=== PATIENT | male | born 1950 | race Caucasian/White ===

== ENCOUNTER 2018-04-03 20:23 | Inpatient (IN) | payer OTHER ==
[2018-04-03 20:59] LABS: ADD MAN DIFF? NO
[2018-04-03 21:02] LABS: BASO # 0.1 x10^3/uL (0.0-0.2); BASO % 1 % (0-3); EOS # 0.1 x10^3/uL (0.0-0.7); EOS % 1 % (0-3); HEMATOCRIT 35.2 % (39.0-53.0); HEMOGLOBIN 11.9 g/dL (13.0-17.5); LYMPH # 1.7 x10^3/uL (1.0-4.8); LYMPH % 20 % (24-48); MEAN CORPUSCULAR HEMOGLOBIN 29 pg (25-35); MEAN CORPUSCULAR HGB CONC 34 g/dL (31-37); MEAN CORPUSCULAR VOLUME 85 fL (79-100); MONO # 0.7 x10^3/uL (0.0-1.1); MONO % 9 % (0-9); NEUT % 70 % (31-73); PLATELET COUNT 149 x10^3/uL (140-400); RED BLOOD COUNT 4.14 x10^6/uL (4.30-5.70); RED CELL DISTRIBUTION WIDTH 14.3 % (11.5-14.5); WHITE BLOOD COUNT 8.6 x10^3/uL (4.0-11.0)
[2018-04-03] MEDS: IPRATRPIUM/ALBUTEROL 0.5/2.5MG 3 ML NEBU. NEB (21:10)
[2018-04-03 21:11] LABS: ANION GAP 7 (6-14); BLOOD UREA NITROGEN 26 mg/dL (8-26); CALCIUM 9.2 mg/dL (8.5-10.1); CARBON DIOXIDE 30 mmol/L (21-32); CHLORIDE 104 mmol/L (98-107); CREATININE 1.2 mg/dL (0.7-1.3); GFR 60.4; GLUCOSE 104 mg/dL (70-99); POTASSIUM 3.8 mmol/L (3.5-5.1); SODIUM 141 mmol/L (136-145)
[2018-04-03 21:17] LABS: ALBUMIN 3.5 g/dL (3.4-5.0); ALK PHOS 93 U/L (46-116); ALT (SGPT) 11 U/L (16-63); AST (SGOT) 15 U/L (15-37); DIRECT BILIRUBIN 0.1 mg/dL (0.0-0.2); TOTAL BILIRUBIN 0.4 mg/dL (0.2-1.0); TOTAL PROTEIN 7.6 g/dL (6.4-8.2)
[2018-04-03] MEDS: methylPREDNISolone SOD SUCC PF 125 MG/2 ML VIAL. IV (21:18)
[2018-04-03 21:19] LABS: LACTIC ACID 0.6 mmol/L (0.4-2.0)
[2018-04-03 21:25] LABS: TROPONINI < 0.017 ng/mL (0.000-0.055)
[2018-04-03 22:55] LABS: PROCALCITONIN < 0.10 ng/mL (0.00-0.10)
[2018-04-03 23:11] LABS: NT-PRO BNP 114 pg/mL (0-124)
[2018-04-03] MEDS: ALBUTEROL SULFATE 2.5 MG/3 ML NEBU. CONT NEB (23:53)
[2018-04-04] MEDS ORDERED: ONDANSETRON PF 4 MG/2 ML VIAL. IV
[2018-04-04] MEDS ORDERED: MORPHINE SULFATE 4 MG/ML DISP.SYRIN. IV
[2018-04-04] MEDS ORDERED: IPRATRPIUM/ALBUTEROL 0.5/2.5MG 3 ML NEBU. NEB (00:30)
[2018-04-04] MEDS: IPRATRPIUM/ALBUTEROL 0.5/2.5MG 3 ML NEBU. NEB ×4 (07:34→20:58)
[2018-04-04 08:37] LABS: POC GLUCOSE 143 mg/dL (70-99)
[2018-04-04] MEDS: FUROSEMIDE 40 MG/4 ML VIAL. IVP (08:48)
[2018-04-04] MEDS: LACTOBACILLUS RHAMNOSUS GG 1 CAPSULE. PO ×2 (08:48→20:32)
[2018-04-04] MEDS ORDERED: ACETAMINOPHEN 325 MG TABLET. PO ×2 (09:00)
[2018-04-04] MEDS ORDERED: SODIUM CHLORIDE 0.65% NASAL SPRAY 45ML BOTTLE. NS (09:00)
[2018-04-04] MEDS ORDERED: BISACODYL 10 MG SUPP.RECT. PR (09:00)
[2018-04-04] MEDS ORDERED: SODIUM PHOSPHATES 19/7GM 133 ML ENEMA. PR (09:00)
[2018-04-04] MEDS ORDERED: MAGNESIUM HYDROXIDE 2,400 MG/30 ML ORAL.SUSP. PO (09:00)
[2018-04-04] MEDS ORDERED: BISACODYL 5 MG TABLET.DR. PO (09:00)
[2018-04-04] MEDS: FUROSEMIDE 20 MG TABLET PO (09:30)
[2018-04-04] MEDS: ASPIRIN CHEWABLE 81 MG TABLET. PO (10:05)
[2018-04-04] MEDS: POLYETHYLENE GLYCOL 3350 17 GM PACKET. PO (10:05)
[2018-04-04] MEDS: SENNOSIDES/DOCUSATE 8.6/50MG TABLET. PO ×2 (10:05→20:32)
[2018-04-04] MEDS: PANTOPRAZOLE 40 MG TABLET.DR. PO (10:05)
[2018-04-04] MEDS: LOSARTAN POTASSIUM 25 MG TABLET. PO (10:05)
[2018-04-04] MEDS: FLUTICASONE 50MCG/NASAL SPRAY 16GM BOTTLE. NS (10:06)
[2018-04-04 12:08] LABS: POC GLUCOSE 154 mg/dL (70-99)
[2018-04-04] MEDS: methylPREDNISolone SOD SUCC PF 125 MG/2 ML VIAL. IV ×2 (16:12→22:11)
[2018-04-04] MEDS: CARVEDILOL 6.25 MG TABLET. PO (16:24)
[2018-04-04 17:12] LABS: POC GLUCOSE 140 mg/dL (70-99)
[2018-04-04] MEDS: CALCIUM CARBONATE 500 MG TAB.CHEW PO ×2 (18:19→22:13)
[2018-04-04] MEDS: CETIRIZINE HCL 10 MG TABLET. PO (20:32)
[2018-04-04] MEDS: MONTELUKAST SODIUM 10 MG TABLET. PO (20:32)
[2018-04-04 20:40] LABS: POC GLUCOSE 135 mg/dL (70-99)
[2018-04-04] MEDS: BUDESONIDE 0.5 MG/2 ML NEBU. NEB (20:58)
[2018-04-05] MEDS: PANTOPRAZOLE 40 MG TABLET.DR. PO (06:09)
[2018-04-05] MEDS: methylPREDNISolone SOD SUCC PF 125 MG/2 ML VIAL. IV ×3 (06:09→15:56)
[2018-04-05] MEDS: BUDESONIDE 0.5 MG/2 ML NEBU. NEB ×2 (08:00→19:43)
[2018-04-05] MEDS: IPRATRPIUM/ALBUTEROL 0.5/2.5MG 3 ML NEBU. NEB ×4 (08:00→19:43)
[2018-04-05 08:12] LABS: POC GLUCOSE 122 mg/dL (70-99)
[2018-04-05 08:35] LABS: ANION GAP 8 (6-14); BLOOD UREA NITROGEN 26 mg/dL (8-26); CALCIUM 9.9 mg/dL (8.5-10.1); CARBON DIOXIDE 30 mmol/L (21-32); CHLORIDE 101 mmol/L (98-107); CREATININE 1.2 mg/dL (0.7-1.3); GFR 60.4; GLUCOSE 130 mg/dL (70-99); POTASSIUM 4.2 mmol/L (3.5-5.1); SODIUM 139 mmol/L (136-145)
[2018-04-05] MEDS: FLUTICASONE 50MCG/NASAL SPRAY 16GM BOTTLE. NS (09:00)
[2018-04-05 09:13] LABS: BASO % 0 % (0-3); EOS % 0 % (0-3); HEMATOCRIT 38.9 % (39.0-53.0); HEMOGLOBIN 13.3 g/dL (13.0-17.5); LYMPH # 0.8 x10^3/uL (1.0-4.8); LYMPH % 6 % (24-48); MEAN CORPUSCULAR HEMOGLOBIN 29 pg (25-35); MEAN CORPUSCULAR HGB CONC 34 g/dL (31-37); MEAN CORPUSCULAR VOLUME 84 fL (79-100); MONO # 0.3 x10^3/uL (0.0-1.1); MONO % 3 % (0-9); NEUT # 11.1 x10^3uL (1.8-7.7); NEUT % 91 % (31-73); PLATELET COUNT 167 x10^3/uL (140-400); RED BLOOD COUNT 4.62 x10^6/uL (4.30-5.70); WHITE BLOOD COUNT 12.2 x10^3/uL (4.0-11.0)
[2018-04-05 09:14] LABS: ADD MAN DIFF? YES
[2018-04-05] MEDS: LOSARTAN POTASSIUM 25 MG TABLET. PO (10:29)
[2018-04-05] MEDS: CARVEDILOL 6.25 MG TABLET. PO ×2 (10:29→17:03)
[2018-04-05] MEDS: FUROSEMIDE 20 MG TABLET PO (10:29)
[2018-04-05] MEDS: LACTOBACILLUS RHAMNOSUS GG 1 CAPSULE. PO ×2 (10:30→20:56)
[2018-04-05] MEDS: ASPIRIN CHEWABLE 81 MG TABLET. PO (10:30)
[2018-04-05] MEDS: POLYETHYLENE GLYCOL 3350 17 GM PACKET. PO (10:30)
[2018-04-05] MEDS: SENNOSIDES/DOCUSATE 8.6/50MG TABLET. PO ×2 (10:30→20:57)
[2018-04-05] MEDS ORDERED: BISACODYL 5 MG TABLET.DR. PO (11:15)
[2018-04-05 11:35] LABS: POC GLUCOSE 137 mg/dL (70-99)
[2018-04-05 12:08] LABS: % LYMPHS 6 % (24-48); % MONOS 1 % (0-10); % SEGS 93 % (35-66); HYPOCHROMIA SLIGHT; PLT ESTIMATE ADEQUATE (ADEQUATE)
[2018-04-05 12:09] LABS: STOMATOCYTES OCC
[2018-04-05 17:09] LABS: POC GLUCOSE 121 mg/dL (70-99)
[2018-04-05] MEDS: CETIRIZINE HCL 10 MG TABLET. PO (20:57)
[2018-04-05] MEDS: MONTELUKAST SODIUM 10 MG TABLET. PO (20:57)
[2018-04-05] MEDS: CALCIUM CARBONATE 500 MG TAB.CHEW PO (21:01)
[2018-04-05 21:13] LABS: POC GLUCOSE 158 mg/dL (70-99)
[2018-04-06] MEDS: PANTOPRAZOLE 40 MG TABLET.DR. PO (06:26)
[2018-04-06] MEDS: BUDESONIDE 0.5 MG/2 ML NEBU. NEB (07:26)
[2018-04-06] MEDS: IPRATRPIUM/ALBUTEROL 0.5/2.5MG 3 ML NEBU. NEB ×3 (07:26→15:55)
[2018-04-06 07:52] LABS: POC GLUCOSE 116 mg/dL (70-99)
[2018-04-06] MEDS: ASPIRIN CHEWABLE 81 MG TABLET. PO (08:06)
[2018-04-06] MEDS: CARVEDILOL 6.25 MG TABLET. PO ×2 (08:07→16:51)
[2018-04-06] MEDS: FLUTICASONE 50MCG/NASAL SPRAY 16GM BOTTLE. NS (08:08)
[2018-04-06] MEDS: LOSARTAN POTASSIUM 25 MG TABLET. PO (08:09)
[2018-04-06] MEDS: FUROSEMIDE 20 MG TABLET PO (08:09)
[2018-04-06] MEDS: LACTOBACILLUS RHAMNOSUS GG 1 CAPSULE. PO (08:09)
[2018-04-06] MEDS: POLYETHYLENE GLYCOL 3350 17 GM PACKET. PO (08:10)
[2018-04-06] MEDS: SENNOSIDES/DOCUSATE 8.6/50MG TABLET. PO (08:10)
[2018-04-06] MEDS: methylPREDNISolone SOD SUCC PF 125 MG/2 ML VIAL. IV (08:11)
[2018-04-06] MEDS: MAGNESIUM CITRATE 296 ML SOLUTION. PO (09:59)
[2018-04-06 11:49] LABS: POC GLUCOSE 144 mg/dL (70-99)
[2018-04-06 17:03] LABS: POC GLUCOSE 128 mg/dL (70-99)
[2018-04-07] MEDS ORDERED: methylPREDNISolone SOD SUCC PF 125 MG/2 ML VIAL. IV (09:00)
== END 2018-04-06 17:50 | disposition home or self-care (01) | DRG 189 ==
LOC: 5 NORTH 23:55 → ER 20:23
DX: J96.21 Acute and chronic respiratory failure with hypoxia (principal); E11.22 Type 2 diabetes mellitus with diabetic chronic kidney disease; I13.0 Hypertensive heart and chronic kidney disease with heart failure and stage 1 through stage 4 chronic kidney disease, or unspecified chronic kidney disease; I50.9 Heart failure, unspecified; J44.1 Chronic obstructive pulmonary disease with (acute) exacerbation; J96.22 Acute and chronic respiratory failure with hypercapnia; J01.90 Acute sinusitis, unspecified; K21.9 Gastro-esophageal reflux disease without esophagitis; K59.00 Constipation, unspecified; N18.2 Chronic kidney disease, stage 2 (mild); Z82.49 Family history of ischemic heart disease and other diseases of the circulatory system; Z99.81 Dependence on supplemental oxygen
CPT/HCPCS: 36415; 71045; 74018; 80048; 80076; 82962; 83605; 83880; 84145; 84484; 85007; 85025; 87040; 93005; 94640; 94760; 96374; 99285; 99285-25; J1940; J2930; J7613; J7620; J7626

== ENCOUNTER 2018-06-15 19:59 | Inpatient (IN) | payer OTHER ==
[2018-06-15] MEDS ORDERED: IPRATRPIUM/ALBUTEROL 0.5/2.5MG 3 ML NEBU. (20:20)
[2018-06-15] MEDS: IPRATRPIUM/ALBUTEROL 0.5/2.5MG 3 ML NEBU. NEB (20:21)
[2018-06-15] MEDS: ALBUTEROL SULFATE 2.5 MG/3 ML NEBU. CONT NEB (20:27)
[2018-06-15] MEDS: methylPREDNISolone SOD SUCC PF 125 MG/2 ML VIAL. IV (20:30)
[2018-06-15 20:36] LABS: PARTIAL THROMBOPLASTIN TIME 24 SEC (24-38); PROTHROMBIN TIME PATIENT 12.9 SEC (11.7-14.0)
[2018-06-15 20:41] LABS: ANION GAP 6 (6-14); BLOOD UREA NITROGEN 20 mg/dL (8-26); CALCIUM 9.7 mg/dL (8.5-10.1); CARBON DIOXIDE 33 mmol/L (21-32); CHLORIDE 105 mmol/L (98-107); CREATININE 1.1 mg/dL (0.7-1.3); GFR 66.8; GLUCOSE 120 mg/dL (70-99); POTASSIUM 3.7 mmol/L (3.5-5.1); SODIUM 144 mmol/L (136-145)
[2018-06-15 20:53] LABS: NT-PRO BNP 585 pg/mL (0-124)
[2018-06-15 20:56] LABS: ADD MAN DIFF? NO
[2018-06-15 20:56] LABS: LACTIC ACID 2.2 mmol/L (0.4-2.0)
[2018-06-15 20:59] LABS: BASO % 1 % (0-3); EOS % 0 % (0-3); HEMOGLOBIN 11.6 g/dL (13.0-17.5); LYMPH # 1.3 x10^3/uL (1.0-4.8); LYMPH % 16 % (24-48); MEAN CORPUSCULAR HEMOGLOBIN 29 pg (25-35); MEAN CORPUSCULAR HGB CONC 34 g/dL (31-37); MEAN CORPUSCULAR VOLUME 84 fL (79-100); MONO # 0.6 x10^3/uL (0.0-1.1); MONO % 7 % (0-9); NEUT # 6.1 x10^3uL (1.8-7.7); NEUT % 76 % (31-73); PLATELET COUNT 160 x10^3/uL (140-400); RED BLOOD COUNT 4.02 x10^6/uL (4.30-5.70); RED CELL DISTRIBUTION WIDTH 14.2 % (11.5-14.5); WHITE BLOOD COUNT 8.1 x10^3/uL (4.0-11.0)
[2018-06-15 21:01] LABS: TROPONINI < 0.017 ng/mL (0.000-0.055)
[2018-06-15 21:14] LABS: PROCALCITONIN < 0.10 ng/mL (0.00-0.10)
[2018-06-15] MEDS ORDERED: MORPHINE SULFATE 4 MG/ML DISP.SYRIN. IV (22:15)
[2018-06-15] MEDS ORDERED: ACETAMINOPHEN 325 MG TABLET. PO (22:15)
[2018-06-15] MEDS ORDERED: ONDANSETRON PF 4 MG/2 ML VIAL. IV (22:15)
[2018-06-15] MEDS: FUROSEMIDE 40 MG/4 ML VIAL. IVP (22:20)
[2018-06-16 01:36] LABS: LACTIC ACID 0.8 mmol/L (0.4-2.0)
[2018-06-16 03:38] LABS: ANION GAP 6 (6-14); BLOOD UREA NITROGEN 20 mg/dL (8-26); CALCIUM 9.4 mg/dL (8.5-10.1); CARBON DIOXIDE 34 mmol/L (21-32); CHLORIDE 104 mmol/L (98-107); GFR 74.5; GLUCOSE 145 mg/dL (70-99); POTASSIUM 3.4 mmol/L (3.5-5.1); SODIUM 144 mmol/L (136-145)
[2018-06-16 04:30] LABS: BASO % 0 % (0-3); EOS % 0 % (0-3); HEMATOCRIT 35.3 % (39.0-53.0); HEMOGLOBIN 11.8 g/dL (13.0-17.5); LYMPH # 0.5 x10^3/uL (1.0-4.8); LYMPH % 7 % (24-48); MEAN CORPUSCULAR HEMOGLOBIN 29 pg (25-35); MEAN CORPUSCULAR HGB CONC 33 g/dL (31-37); MEAN CORPUSCULAR VOLUME 86 fL (79-100); MONO # 0.1 x10^3/uL (0.0-1.1); MONO % 1 % (0-9); NEUT # 6.7 x10^3uL (1.8-7.7); NEUT % 92 % (31-73); PLATELET COUNT 152 x10^3/uL (140-400); RED BLOOD COUNT 4.12 x10^6/uL (4.30-5.70); RED CELL DISTRIBUTION WIDTH 14.4 % (11.5-14.5); WHITE BLOOD COUNT 7.3 x10^3/uL (4.0-11.0)
[2018-06-16 04:56] LABS: ADD MAN DIFF? YES
[2018-06-16 07:57] LABS: POC GLUCOSE 158 mg/dL (70-99)
[2018-06-16] MEDS: IPRATRPIUM/ALBUTEROL 0.5/2.5MG 3 ML NEBU. NEB ×4 (08:37→19:37)
[2018-06-16] MEDS ORDERED: CALCIUM CARBONATE 500 MG TAB.CHEW PO (09:00)
[2018-06-16] MEDS ORDERED: ALBUTEROL SULFATE 2.5 MG/3 ML NEBU. NEB (09:00)
[2018-06-16] MEDS ORDERED: ONDANSETRON PF 4 MG/2 ML VIAL. IV (09:00)
[2018-06-16] MEDS ORDERED: SODIUM CHLORIDE 0.65% NASAL SPRAY 45ML BOTTLE. NS (09:00)
[2018-06-16] MEDS ORDERED: ACETAMINOPHEN 325 MG TABLET. PO (09:00)
[2018-06-16] MEDS: FLUTICASONE 50MCG/NASAL SPRAY 16GM BOTTLE. NS (09:30)
[2018-06-16] MEDS ORDERED: DEXTROSE 50% 25 GM / 50ML DISP.SYRIN. IV (09:30)
[2018-06-16] MEDS: POLYETHYLENE GLYCOL 3350 17 GM PACKET. PO (09:30)
[2018-06-16] MEDS: ASPIRIN CHEWABLE 81 MG TABLET. PO (09:52)
[2018-06-16] MEDS: PANTOPRAZOLE 40 MG TABLET.DR. PO (09:52)
[2018-06-16] MEDS: SENNOSIDES/DOCUSATE 8.6/50MG TABLET. PO ×2 (09:52→21:02)
[2018-06-16] MEDS: CARVEDILOL 6.25 MG TABLET. PO ×2 (09:53→17:31)
[2018-06-16] MEDS: methylPREDNISolone SOD SUCC PF 125 MG/2 ML VIAL. IV ×2 (09:53→21:02)
[2018-06-16 10:16] LABS: % LYMPHS 6 % (24-48); % SEGS 94 % (35-66); PLT ESTIMATE ADEQUATE (ADEQUATE)
[2018-06-16 10:17] LABS: HYPOCHROMIA SLIGHT; STOMATOCYTES OCC
[2018-06-16 10:28] LABS: LACTIC ACID 1.5 mmol/L (0.4-2.0)
[2018-06-16 10:33] LABS: PROSTATE SPECIFIC ANTIGEN 0.52 ng/mL (0.00-4.00)
[2018-06-16 12:09] LABS: POC GLUCOSE 212 mg/dL (70-99)
[2018-06-16] MEDS: FUROSEMIDE 40 MG/4 ML VIAL. IVP (12:13)
[2018-06-16] MEDS: BUDESONIDE 0.5 MG/2 ML NEBU. NEB ×2 (12:14→19:37)
[2018-06-16] MEDS: INSULIN LISPRO 300 UNITS/3 ML INSULN.PEN. SQ ×2 (12:18→17:00)
[2018-06-16 13:48] LABS: BILIRUBIN,URINE NEGATIVE (NEG); CLARITY,URINE CLEAR; COLOR,URINE YELLOW; GLUCOSE,URINE 100 mg/dL (NEG); NITRITE,URINE NEGATIVE (NEG); PROTEIN,URINE NEGATIVE (NEG-TRACE); UROBILINOGEN,URINE 0.2 mg/dL (0.2 mg/dL)
[2018-06-16 14:14] LABS: BACTERIA,URINE 0 /HPF (0-FEW); SQUAMOUS EPITHELIAL CELL,UR OCC /LPF
[2018-06-16] MEDS ORDERED: INSULIN LISPRO 300 UNITS/3 ML INSULN.PEN. SQ (16:30)
[2018-06-16 17:05] LABS: POC GLUCOSE 136 mg/dL (70-99)
[2018-06-16] MEDS: LACTOBACILLUS RHAMNOSUS GG 1 CAPSULE. PO (21:02)
[2018-06-16] MEDS: TAMSULOSIN 0.4 MG CAP.ER.24H. PO (21:02)
[2018-06-17 05:49] LABS: ADD MAN DIFF? NO
[2018-06-17 05:55] LABS: BASO % 0 % (0-3); EOS % 0 % (0-3); HEMATOCRIT 35.2 % (39.0-53.0); HEMOGLOBIN 11.9 g/dL (13.0-17.5); LYMPH # 0.7 x10^3/uL (1.0-4.8); LYMPH % 8 % (24-48); MEAN CORPUSCULAR HEMOGLOBIN 28 pg (25-35); MEAN CORPUSCULAR HGB CONC 34 g/dL (31-37); MEAN CORPUSCULAR VOLUME 84 fL (79-100); MONO # 0.3 x10^3/uL (0.0-1.1); MONO % 4 % (0-9); NEUT % 88 % (31-73); PLATELET COUNT 144 x10^3/uL (140-400); RED CELL DISTRIBUTION WIDTH 14.2 % (11.5-14.5)
[2018-06-17 06:29] LABS: ALBUMIN 3.2 g/dL (3.4-5.0); ALBUMIN/GLOBULIN RATIO 0.7 (1.0-1.7); ALK PHOS 76 U/L (46-116); ALT (SGPT) 17 U/L (16-63); ANION GAP 4 (6-14); AST (SGOT) 15 U/L (15-37); BLOOD UREA NITROGEN 18 mg/dL (8-26); BUN/CREATININE RATIO 18 (6-20); CALCIUM 9.5 mg/dL (8.5-10.1); CARBON DIOXIDE 34 mmol/L (21-32); CHLORIDE 102 mmol/L (98-107); GFR 74.5; GLUCOSE 132 mg/dL (70-99); POTASSIUM 3.8 mmol/L (3.5-5.1); SODIUM 140 mmol/L (136-145); TOTAL BILIRUBIN 0.3 mg/dL (0.2-1.0); TOTAL PROTEIN 7.5 g/dL (6.4-8.2)
[2018-06-17] MEDS: IPRATRPIUM/ALBUTEROL 0.5/2.5MG 3 ML NEBU. NEB ×4 (07:31→21:54)
[2018-06-17] MEDS: BUDESONIDE 0.5 MG/2 ML NEBU. NEB ×2 (07:31→21:54)
[2018-06-17 07:47] LABS: POC GLUCOSE 138 mg/dL (70-99)
[2018-06-17] MEDS: INSULIN LISPRO 300 UNITS/3 ML INSULN.PEN. SQ ×3 (08:00→17:00)
[2018-06-17] MEDS: ASPIRIN CHEWABLE 81 MG TABLET. PO (09:00)
[2018-06-17] MEDS: POLYETHYLENE GLYCOL 3350 17 GM PACKET. PO (09:00)
[2018-06-17] MEDS: PANTOPRAZOLE 40 MG TABLET.DR. PO (09:00)
[2018-06-17] MEDS: POTASSIUM CHLORIDE 10 MEQ TABLET.ER. PO ×3 (09:01→17:38)
[2018-06-17] MEDS: SENNOSIDES/DOCUSATE 8.6/50MG TABLET. PO ×2 (09:01→20:55)
[2018-06-17] MEDS: FLUTICASONE 50MCG/NASAL SPRAY 16GM BOTTLE. NS (09:02)
[2018-06-17] MEDS: CARVEDILOL 6.25 MG TABLET. PO ×2 (09:02→17:38)
[2018-06-17] MEDS: methylPREDNISolone SOD SUCC PF 125 MG/2 ML VIAL. IV (09:03)
[2018-06-17] MEDS ORDERED: FUROSEMIDE 40 MG/4 ML VIAL. IVP (10:15)
[2018-06-17] MEDS: FUROSEMIDE 40 MG/4 ML VIAL. IVP (10:46)
[2018-06-17 11:51] LABS: POC GLUCOSE 170 mg/dL (70-99)
[2018-06-17 17:00] LABS: POC GLUCOSE 137 mg/dL (70-99)
[2018-06-17 20:33] LABS: POC GLUCOSE 132 mg/dL (70-99)
[2018-06-17] MEDS: TAMSULOSIN 0.4 MG CAP.ER.24H. PO (20:55)
[2018-06-18 04:37] LABS: ADD MAN DIFF? NO
[2018-06-18 04:48] LABS: BASO % 0 % (0-3); EOS % 0 % (0-3); HEMATOCRIT 36.3 % (39.0-53.0); HEMOGLOBIN 12.2 g/dL (13.0-17.5); LYMPH # 1.4 x10^3/uL (1.0-4.8); LYMPH % 13 % (24-48); MEAN CORPUSCULAR HEMOGLOBIN 28 pg (25-35); MEAN CORPUSCULAR HGB CONC 34 g/dL (31-37); MEAN CORPUSCULAR VOLUME 84 fL (79-100); MONO # 0.9 x10^3/uL (0.0-1.1); MONO % 8 % (0-9); NEUT # 8.3 x10^3uL (1.8-7.7); NEUT % 79 % (31-73); PLATELET COUNT 151 x10^3/uL (140-400); RED BLOOD COUNT 4.31 x10^6/uL (4.30-5.70); RED CELL DISTRIBUTION WIDTH 14.3 % (11.5-14.5); WHITE BLOOD COUNT 10.5 x10^3/uL (4.0-11.0)
[2018-06-18 05:30] LABS: ALBUMIN/GLOBULIN RATIO 0.8 (1.0-1.7); ALK PHOS 83 U/L (46-116); ALT (SGPT) 18 U/L (16-63); ANION GAP 5 (6-14); AST (SGOT) 14 U/L (15-37); BLOOD UREA NITROGEN 27 mg/dL (8-26); BUN/CREATININE RATIO 27 (6-20); CARBON DIOXIDE 34 mmol/L (21-32); CHLORIDE 101 mmol/L (98-107); GFR 74.5; GLUCOSE 119 mg/dL (70-99); MAGNESIUM 1.9 mg/dL (1.8-2.4); POTASSIUM 3.7 mmol/L (3.5-5.1); SODIUM 140 mmol/L (136-145); TOTAL BILIRUBIN 0.2 mg/dL (0.2-1.0)
[2018-06-18] MEDS: BUDESONIDE 0.5 MG/2 ML NEBU. NEB ×2 (07:20→19:17)
[2018-06-18] MEDS: IPRATRPIUM/ALBUTEROL 0.5/2.5MG 3 ML NEBU. NEB ×4 (07:20→19:16)
[2018-06-18] MEDS: INSULIN LISPRO 300 UNITS/3 ML INSULN.PEN. SQ ×3 (08:00→17:00)
[2018-06-18 08:16] LABS: POC GLUCOSE 109 mg/dL (70-99)
[2018-06-18] MEDS: POTASSIUM CHLORIDE 10 MEQ TABLET.ER. PO ×3 (08:52→17:36)
[2018-06-18] MEDS: CARVEDILOL 6.25 MG TABLET. PO ×2 (08:52→17:37)
[2018-06-18] MEDS: ASPIRIN CHEWABLE 81 MG TABLET. PO (08:52)
[2018-06-18] MEDS: SENNOSIDES/DOCUSATE 8.6/50MG TABLET. PO ×2 (08:52→20:27)
[2018-06-18] MEDS: PANTOPRAZOLE 40 MG TABLET.DR. PO (08:52)
[2018-06-18] MEDS: POLYETHYLENE GLYCOL 3350 17 GM PACKET. PO (08:53)
[2018-06-18] MEDS: FUROSEMIDE 40 MG TABLET. PO (08:54)
[2018-06-18] MEDS: FLUTICASONE 50MCG/NASAL SPRAY 16GM BOTTLE. NS (08:56)
[2018-06-18] MEDS: methylPREDNISolone SOD SUCC PF 125 MG/2 ML VIAL. IV (08:57)
[2018-06-18 12:09] LABS: POC GLUCOSE 119 mg/dL (70-99)
[2018-06-18 17:08] LABS: POC GLUCOSE 119 mg/dL (70-99)
[2018-06-18] MEDS: TAMSULOSIN 0.4 MG CAP.ER.24H. PO (20:27)
[2018-06-18 20:33] LABS: POC GLUCOSE 138 mg/dL (70-99)
[2018-06-19 05:33] LABS: ALBUMIN 2.9 g/dL (3.4-5.0); ALBUMIN/GLOBULIN RATIO 0.7 (1.0-1.7); ALK PHOS 72 U/L (46-116); ALT (SGPT) 18 U/L (16-63); AST (SGOT) 17 U/L (15-37); BLOOD UREA NITROGEN 32 mg/dL (8-26); BUN/CREATININE RATIO 32 (6-20); CALCIUM 9.7 mg/dL (8.5-10.1); CHLORIDE 101 mmol/L (98-107); GFR 74.5; GLUCOSE 108 mg/dL (70-99); POTASSIUM 4.2 mmol/L (3.5-5.1); SODIUM 138 mmol/L (136-145); TOTAL BILIRUBIN 0.3 mg/dL (0.2-1.0); TOTAL PROTEIN 7.2 g/dL (6.4-8.2)
[2018-06-19 05:34] LABS: ANION GAP 5 (6-14); CARBON DIOXIDE 32 mmol/L (21-32)
[2018-06-19 07:31] LABS: POC GLUCOSE 115 mg/dL (70-99)
[2018-06-19] MEDS: BUDESONIDE 0.5 MG/2 ML NEBU. NEB (07:48)
[2018-06-19] MEDS: IPRATRPIUM/ALBUTEROL 0.5/2.5MG 3 ML NEBU. NEB ×2 (07:48→11:40)
[2018-06-19] MEDS: INSULIN LISPRO 300 UNITS/3 ML INSULN.PEN. SQ (08:00)
[2018-06-19] MEDS: methylPREDNISolone SOD SUCC PF 125 MG/2 ML VIAL. IV (08:58)
[2018-06-19] MEDS: SENNOSIDES/DOCUSATE 8.6/50MG TABLET. PO (08:59)
[2018-06-19] MEDS: FUROSEMIDE 40 MG TABLET. PO (08:59)
[2018-06-19] MEDS: ASPIRIN CHEWABLE 81 MG TABLET. PO (08:59)
[2018-06-19] MEDS: POTASSIUM CHLORIDE 10 MEQ TABLET.ER. PO (08:59)
[2018-06-19] MEDS: PANTOPRAZOLE 40 MG TABLET.DR. PO (08:59)
[2018-06-19] MEDS: CARVEDILOL 6.25 MG TABLET. PO (08:59)
[2018-06-19] MEDS: POLYETHYLENE GLYCOL 3350 17 GM PACKET. PO (09:00)
[2018-06-19] MEDS: FLUTICASONE 50MCG/NASAL SPRAY 16GM BOTTLE. NS (09:00)
[2018-06-19 09:46] LABS: ADD MAN DIFF? NO
[2018-06-19 10:16] LABS: BASO % 0 % (0-3); EOS % 0 % (0-3); HEMATOCRIT 41.2 % (39.0-53.0); HEMOGLOBIN 13.8 g/dL (13.0-17.5); LYMPH # 2.9 x10^3/uL (1.0-4.8); LYMPH % 30 % (24-48); MEAN CORPUSCULAR HEMOGLOBIN 29 pg (25-35); MEAN CORPUSCULAR HGB CONC 33 g/dL (31-37); MEAN CORPUSCULAR VOLUME 86 fL (79-100); MONO % 11 % (0-9); NEUT # 5.8 x10^3uL (1.8-7.7); NEUT % 60 % (31-73); PLATELET COUNT 145 x10^3/uL (140-400); RED BLOOD COUNT 4.81 x10^6/uL (4.30-5.70); RED CELL DISTRIBUTION WIDTH 14.2 % (11.5-14.5); WHITE BLOOD COUNT 9.7 x10^3/uL (4.0-11.0)
== END 2018-06-19 11:55 | disposition home or self-care (01) | DRG 291 ==
LOC: ER 19:59 → 2 NORTH 22:00
DX: I13.0 Hypertensive heart and chronic kidney disease with heart failure and stage 1 through stage 4 chronic kidney disease, or unspecified chronic kidney disease (principal); I50.33 Acute on chronic diastolic (congestive) heart failure; J96.21 Acute and chronic respiratory failure with hypoxia; J96.22 Acute and chronic respiratory failure with hypercapnia; J44.1 Chronic obstructive pulmonary disease with (acute) exacerbation; E87.2 Acidosis; E44.0 Moderate protein-calorie malnutrition; N18.2 Chronic kidney disease, stage 2 (mild); E11.22 Type 2 diabetes mellitus with diabetic chronic kidney disease; K21.9 Gastro-esophageal reflux disease without esophagitis; K59.00 Constipation, unspecified; E78.5 Hyperlipidemia, unspecified; M19.90 Unspecified osteoarthritis, unspecified site; I27.20 Pulmonary hypertension, unspecified; F17.200 Nicotine dependence, unspecified, uncomplicated; D64.9 Anemia, unspecified; R33.8 Other retention of urine; N40.1 Benign prostatic hyperplasia with lower urinary tract symptoms; E87.6 Hypokalemia; Z99.81 Dependence on supplemental oxygen; Z82.49 Family history of ischemic heart disease and other diseases of the circulatory system; Z68.20 Body mass index [BMI] 20.0-20.9, adult; Z91.14 Patient's other noncompliance with medication regimen; Z71.6 Tobacco abuse counseling
CPT/HCPCS: 36415; 71045; 80048; 80053; 81001; 82962; 83605; 83735; 83880; 84145; 84484; 85007; 85025; 85610; 85730; 93005; 93308; 93320; 93325; 94640; 94644; 94760; 96374; 96375; 97110-GP; 97162-GP; 97165-GO; 99285; 99285-25; G0103; J1815; J1940; J2930; J7613; J7620; J7626

== ENCOUNTER 2019-04-04 15:24 | Inpatient (IN) | payer OTHER ==
[~2019-04-04] VITALS: Ht 182.9 cm; Wt 82.6 kg
[~2019-04-04 15:24] MED LIST: ALBU2.5V8 INH; ASPI81TA59 PO; BUDE10.2 IH; CALC200T23 PO; CARV6.2511 PO; DOXY100T PO; FLUT16SP NS; FURO20TA3 PO; FURO40TA4 PO; IPRA3AMP29 NEB; LEVO500T59 PO; LOSA25TA PO; METF500T16 PO; METH4TAB6 PO; MONT10TA9 PO; OMEP20TA8 PO; POLY255P11 PO; POTA10TA12 PO; POTA20TA4 PO; PRED-220 PO; Pantoprazole PO; SENN-22 PO; SODI44SP NS; SPIR25TA5 PO; TAMS0.4C97 PO; TIOT18CA IH
[2019-04-04] MEDS ORDERED: IPRATRPIUM/ALBUTEROL 0.5/2.5MG 3 ML NEBU. ONE (15:37)
--- NOTE | 2019-04-04 15:54 | PHYS DOC ---
Past Medical History Past Medical History: CHF, COPD, Diabetes-Type II, Hypertension Additional Past Medical Histor: "LIVER PROBLEMS" (BRENNAN WEATHERS APRN) Past Surgical History: No Surgical History (BRENNAN WEATHERS APRN) Smoking: Cigarettes, Less than 1pk/day Alcohol Use: None Drug Use: None (BRENNAN WEATHERS APRN) Adult General Chief Complaint Chief Complaint: SHORTNESS OF BREATH HPI HPI Patient is a 68 year old male who presents with shortness of breath. He has been getting increasingly short of breath over the last several days. Associated symptoms include cough and feeling hot and cold. Has history of COPD and is on 4 L of oxygen at home at baseline. Took albuterol breathing treatment this morning at home says it helped a little bit. States of the lasts 2 days he's been having bilateral leg swelling or so than usual. Presented to ER via EMS and was satting approximately 79-82% on room air. Was placed on 3 L the nursing staff which increased oxygen 85%. (BRENNAN WEATHERS APRN) Review of Systems Review of Systems Constitutional: Reports fever or chills [] Eyes: Denies change in visual acuity, redness, or eye pain [] HENT: Denies nasal congestion or sore throat [] Respiratory:Reports cough or shortness of breath [] Cardiovascular: No additional information not addressed in HPI [] GI: Denies abdominal pain, nausea, vomiting, bloody stools or diarrhea [] : Denies dysuria or hematuria [] Musculoskeletal: Denies back pain or joint pain [] Integument: Denies rash or skin lesions but reports bilateral edema in the lower extremities. Neurologic: Denies headache, focal weakness or sensory changes [] Endocrine: Denies polyuria or polydipsia [] Complete systems were reviewed and found to be within normal limits, except as documented in this note. (BRENNAN WEATHERS APRN) Current Medications Current Medications Current Medications Medications (Trade) Dose Ordered Sig/Chidi Start Time Stop Time Status Last Admin Dose Admin Albuterol/ Ipratropium (Duoneb) 3 ml STK-MED ONCE 04/04/19 15:37 04/04/19 15:38 DC Info (CONTRAST GIVEN -- Rx MONITORING) 1 each PRN DAILY PRN 04/04/19 17:30 04/06/19 17:29 Iohexol (Omnipaque 350 Mg/ml) 100 ml 1X ONCE 04/04/19 17:30 04/04/19 17:31 DC 04/04/19 17:45 100 ML Methylprednisolone Sodium Succinate (SOLU-Medrol 125MG VIAL) 125 mg 1X ONCE 04/04/19 16:00 04/04/19 16:01 DC 04/04/19 15:50 125 MG (BRENNAN TIDWELL DO) Allergies Allergies Allergies Coded Allergies Type Severity Reaction Last Updated Verified No Known Drug Allergies 06/28/16 No (BRENNAN TIDWELL DO) Physical Exam Physical Exam Constitutional: Well developed, well nourished, no acute distress, non-toxic appearance. [] HENT: Normocephalic, atraumatic, bilateral external ears normal, oropharynx moist, no oral exudates, nose normal. [] Eyes: PERRLA, EOMI, conjunctiva normal, no discharge. [] Neck: Normal range of motion, no tenderness, supple, no stridor. [] Cardiovascular:Heart rate regular rhythm, no murmur [] Lungs & Thorax: Bilateral breath were shallow, slight wheezes diffusely and not moving much air. Abdomen: Soft, no tenderness, no masses, no pulsatile masses. [] Skin: Warm, dry, no erythema, no rash. [] Back: No tenderness, no CVA tenderness. [] Extremities: No tenderness, no cyanosis, no clubbing, ROM intact, mild edema bilaterally. Neurologic: Alert and oriented X 3, normal motor function, normal sensory function, no focal deficits noted. [] Psychologic: Affect normal, judgement normal, mood normal. [] (BRENNAN WEATHERS APRN) Current Patient Data Vital Signs Vital Signs Date Time Temp Pulse Resp B/P (MAP) Pulse Ox O2 Delivery O2 Flow Rate FiO2 04/04/19 17:15 60 24 97/61 (73) 92 Nasal Cannula 5.0 04/04/19 15:25 98.4 98.4 (BRENNAN TIDWELL DO) Lab Values Laboratory Tests Test 04/04/19 15:36 04/04/19 15:58 04/04/19 16:11 Urine Collection Type Unknown Urine Color Yellow Urine Clarity Clear Urine pH 8.5 Urine Specific [place] >=1.030 Urine Protein Negative mg/dL (NEG-TRACE) Urine Glucose (UA) Negative mg/dL (NEG) Urine Ketones (Stick) Negative mg/dL (NEG) Urine Blood Negative (NEG) Urine Nitrite Negative (NEG) Urine Bilirubin Negative (NEG) Urine Urobilinogen Dipstick 1.0 mg/dL (0.2 mg/dL) Urine Leukocyte Esterase Negative (NEG) Urine RBC Occ /HPF (0-2) Urine WBC 1-4 /HPF (0-4) Urine Squamous Epithelial Cells Few /LPF Urine Bacteria 0 /HPF (0-FEW) Urine Mucus Slight /LPF White Blood Count 5.8 x10^3/uL (4.0-11.0) Red Blood Count 4.22 x10^6/uL (4.30-5.70) L Hemoglobin 11.2 g/dL (13.0-17.5) L Hematocrit 34.5 % (39.0-53.0) L Mean Corpuscular Volume 82 fL (79-100) Mean Corpuscular Hemoglobin 27 pg (25-35) Mean Corpuscular Hemoglobin Concent 32 g/dL (31-37) Red Cell Distribution Width 15.4 % (11.5-14.5) H Platelet Count 128 x10^3/uL (140-400) L Neutrophils (%) (Auto) 62 % (31-73) Lymphocytes (%) (Auto) 20 % (24-48) L Monocytes (%) (Auto) 13 % (0-9) H Eosinophils (%) (Auto) 3 % (0-3) Basophils (%) (Auto) 1 % (0-3) Neutrophils # (Auto) 3.6 x10^3uL (1.8-7.7) Lymphocytes # (Auto) 1.2 x10^3/uL (1.0-4.8) Monocytes # (Auto) 0.8 x10^3/uL (0.0-1.1) Eosinophils # (Auto) 0.2 x10^3/uL (0.0-0.7) Basophils # (Auto) 0.0 x10^3/uL (0.0-0.2) Sodium Level 142 mmol/L (136-145) Potassium Level 4.3 mmol/L (3.5-5.1) Chloride Level 102 mmol/L (98-107) Carbon Dioxide Level 33 mmol/L (21-32) H Anion Gap 7 (6-14) Blood Urea Nitrogen 18 mg/dL (8-26) Creatinine 1.1 mg/dL (0.7-1.3) Estimated GFR (Cockcroft-Gault) 66.6 BUN/Creatinine Ratio 16 (6-20) Glucose Level 108 mg/dL (70-99) H Lactic Acid Level 0.7 mmol/L (0.4-2.0) Calcium Level 8.7 mg/dL (8.5-10.1) Total Bilirubin 0.4 mg/dL (0.2-1.0) Aspartate Amino Transferase (AST) 14 U/L (15-37) L Alanine Aminotransferase (ALT) 13 U/L (16-63) L Alkaline Phosphatase 101 U/L (46-116) Troponin I Quantitative < 0.017 ng/mL (0.000-0.055) JR-Kgf-G-Type Natriuretic Peptide 140 pg/mL (0-124) H Total Protein 7.0 g/dL (6.4-8.2) Albumin 3.2 g/dL (3.4-5.0) L Albumin/Globulin Ratio 0.8 (1.0-1.7) L O2 Saturation 96 % (92-99) Arterial Blood pH 7.34 (7.35-7.45) L Arterial Blood pCO2 at Patient Temp 62 mmHg (35-46) *H Arterial Blood pO2 at Patient Temp 92 mmHg (65-108) Arterial Blood HCO3 33 mmol/L (21-28) H Arterial Blood Base Excess 6 mmol/L (-3-3) H Oxyhemoglobin 94.9 % Methemoglobin 0.2 % (0.0-1.9) Carbon Monoxide, Quantitative 0.4 % (0.0-1.9) FiO2 50% Laboratory Tests 04/04/19 15:58 Laboratory Tests 04/04/19 15:58 Microbiology 04/04/19 Blood Culture - Preliminary, Resulted NO GROWTH AFTER 1 DAY (BRENNAN TIDWELL DO) Lab Values Laboratory Tests Test 04/04/19 15:58 04/04/19 16:11 White Blood Count 5.8 x10^3/uL (4.0-11.0) Red Blood Count 4.22 x10^6/uL (4.30-5.70) L Hemoglobin 11.2 g/dL (13.0-17.5) L Hematocrit 34.5 % (39.0-53.0) L Mean Corpuscular Volume 82 fL (79-100) Mean Corpuscular Hemoglobin 27 pg (25-35) Mean Corpuscular Hemoglobin Concent 32 g/dL (31-37) Red Cell Distribution Width 15.4 % (11.5-14.5) H Platelet Count 128 x10^3/uL (140-400) L Neutrophils (%) (Auto) 62 % (31-73) Lymphocytes (%) (Auto) 20 % (24-48) L Monocytes (%) (Auto) 13 % (0-9) H Eosinophils (%) (Auto) 3 % (0-3) Basophils (%) (Auto) 1 % (0-3) Neutrophils # (Auto) 3.6 x10^3uL (1.8-7.7) Lymphocytes # (Auto) 1.2 x10^3/uL (1.0-4.8) Monocytes # (Auto) 0.8 x10^3/uL (0.0-1.1) Eosinophils # (Auto) 0.2 x10^3/uL (0.0-0.7) Basophils # (Auto) 0.0 x10^3/uL (0.0-0.2) Sodium Level 142 mmol/L (136-145) Potassium Level 4.3 mmol/L (3.5-5.1) Chloride Level 102 mmol/L (98-107) Carbon Dioxide Level 33 mmol/L (21-32) H Anion Gap 7 (6-14) Blood Urea Nitrogen 18 mg/dL (8-26) Creatinine 1.1 mg/dL (0.7-1.3) Estimated GFR (Cockcroft-Gault) 66.6 BUN/Creatinine Ratio 16 (6-20) Glucose Level 108 mg/dL (70-99) H Lactic Acid Level 0.7 mmol/L (0.4-2.0) Calcium Level 8.7 mg/dL (8.5-10.1) Total Bilirubin 0.4 mg/dL (0.2-1.0) Aspartate Amino Transferase (AST) 14 U/L (15-37) L Alanine Aminotransferase (ALT) 13 U/L (16-63) L Alkaline Phosphatase 101 U/L (46-116) Troponin I Quantitative < 0.017 ng/mL (0.000-0.055) NB-Bpc-R-Type Natriuretic Peptide 140 pg/mL (0-124) H Total Protein 7.0 g/dL (6.4-8.2) Albumin 3.2 g/dL (3.4-5.0) L Albumin/Globulin Ratio 0.8 (1.0-1.7) L O2 Saturation 96 % (92-99) Arterial Blood pH 7.34 (7.35-7.45) L Arterial Blood pCO2 at Patient Temp 62 mmHg (35-46) *H Arterial Blood pO2 at Patient Temp 92 mmHg (65-108) Arterial Blood HCO3 33 mmol/L (21-28) H Arterial Blood Base Excess 6 mmol/L (-3-3) H Oxyhemoglobin 94.9 % Methemoglobin 0.2 % (0.0-1.9) Carbon Monoxide, Quantitative 0.4 % (0.0-1.9) FiO2 50% Laboratory Tests 04/04/19 15:58 Laboratory Tests 04/04/19 15:58 (BRENNAN WEATHERS APRN) EKG EKG EKG interpreted by Dr. Brennan Tidwell Sinus Rhythm with Rate of 64. 0.[address] elevation in 2,3, Avf, 0.[address] depression in V1, V2, V3. [] (BRENNAN WEATHERS APRN) Radiology/Procedures Radiology/Procedures []PATIENT: TONYA GALLARDO IVACCOUNT: [id number]#: [id number] : 1950 LOCATION: ER AGE: 68 SEX: M EXAM STATUS: REG ER ORD. PHYSICIAN: BRENNAN WEATHERS APRN REASON: SOA PROCEDURE: CHEST PA & LATERAL PA and lateral chest radiographs 04/04/2019 CLINICAL HISTORY: Shortness of breath. PA and lateral digital radiographs of the chest were obtained. Comparison study is dated 06/15/2018. The cardiac silhouette is normal in size. The thoracic aorta is minimally tortuous. Prominence of the interstitial markings in both lungs is seen, unchanged. No acute pulmonary infiltrate is noted. No pneumothorax or pleural effusion is seen. There is diffuse osteopenia the visualized bony structures. Degenerative changes are seen involving the thoracic spine. IMPRESSION: No acute pulmonary infiltrate is seen. Electronically signed by: Yandel Shay MD (04/04/2019 4:41 PM) [facility] PATIENT: TONYA GALLARDO IV ACCOUNT: [id number] : 1950 LOCATION: ER AGE: 68 SEX: M EXAM STATUS: REG ER ORD. PHYSICIAN: BRENNAN WEATHERS APRN REASON: r/o PE INCREASING SOA INJ 100 OMNI 350 PROCEDURE: CT ANGIOGRAPHY CHEST CT ANGIOGRAPHY CHEST Indication: Increasing shortness of breath. . Technique: After intravenous contrast administration, CT imaging was performed of the chest. MIP reconstructions were obtained. Exposure: One or more of the following individualized dose reduction techniques were utilized for this examination: 1. Automated exposure control 2. Adjustment of the mA and/or kV according to patient size 3. Use of iterative reconstruction technique. Findings: No evidence of pulmonary embolism. The aorta is mildly calcified. No evidence of aneurysm. Proximal great vessels appear patent. No evidence of thoracic aortic dissection. No pericardial effusion. Small prevascular mediastinal lymph node measures 8 mm in short axis. No significant hilar or axillary lymph node enlargement. Partially visualized thyroid appears symmetric. No pleural effusion. There are prominent interstitial markings in both lungs. There is a more focal ill-defined opacity in the posterior left upper lobe which measures about 2.5 cm long axis with central lucency or cavity. Trachea and central airways are patent. No evidence of acute bone abnormality. Limited scans through the upper abdomen demonstrate no acute findings IMPRESSION: 1. No evidence of pulmonary embolism. 2. There is an ovoid nodular structure with ill-defined margins and central lucency in the left upper lobe. Could represent scarring, inflammatory/infectious focus or a pulmonary mass. Depending on clinical concern, recommend short-term follow-up CT chest in one or 2 months after acute treatment, or PET/CT scan. Electronically signed by: Brennan Wheat MD (04/04/2019 6:16 PM) [facility] (BRENNAN WEATHERS APRN) Course & Med Decision Making Course & Med Decision Making Pertinent Labs and Imaging studies reviewed. (See chart for details) Discussed symptoms with patient. Will order labs, urine, breathing treatment, chest x-ray, steroids, and oxygen. Patient is agreeable to plan of care. ABG shows: PH of 7.340 pCO2 of 62.4 p02: 91.8 HCO3 of 32.9 Imaging is unremarkable. Appears to be a COPD exacerbation. Will call hospitalist for admission. Dr. Woods suggests to do a CT angiogram of the Chest to r/o PE. Will order test and call him back. CT CHEST is Negative for PE. Will admit to hospital to Dr. Woods. (BRENNAN WEATHERS APRN) Dragon Disclaimer Dragon Disclaimer This electronic medical record was generated, in whole or in part, using a voice recognition dictation system. (BRENNAN WEATHERS APRN) Departure Departure Impression: Primary Impression: COPD exacerbation Disposition: ADMITTED INPATIENT Condition: STABLE Referrals: LEXX SHOEMAKER MD (PCP) Attending Signature Attending Signature I have reviewed the PA/TOUR AGENT's note and plan of care. I was available for consultation as needed during the patient's visit in the emergency department. I agree with the clinical impression, plan, and disposition. (BRENNAN TIDWELL DO) BRENNAN WEATHERS APRN April 04, 2019 15:54 BRENNAN TIDWELL DO April 06, 2019 01:58
[2019-04-04] MEDS ORDERED: methylPREDNISolone SOD SUCC PF 125 MG/2 ML VIAL. IV ONE (16:00)
[2019-04-04] MEDS ORDERED: IPRATRPIUM/ALBUTEROL 0.5/2.5MG 3 ML NEBU. NEB ONE (16:00)
[2019-04-04 16:16] LABS: BASO % 1 % (0-3); EOS # 0.2 x10^3/uL (0.0-0.7); EOS % 3 % (0-3); HEMATOCRIT 34.5 % (39.0-53.0); HEMOGLOBIN 11.2 g/dL (13.0-17.5); LYMPH # 1.2 x10^3/uL (1.0-4.8); LYMPH % 20 % (24-48); MEAN CORPUSCULAR HEMOGLOBIN 27 pg (25-35); MEAN CORPUSCULAR HGB CONC 32 g/dL (31-37); MEAN CORPUSCULAR VOLUME 82 fL (79-100); MONO # 0.8 x10^3/uL (0.0-1.1); MONO % 13 % (0-9); NEUT # 3.6 x10^3uL (1.8-7.7); NEUT % 62 % (31-73); PLATELET COUNT 128 x10^3/uL (140-400); RED BLOOD COUNT 4.22 x10^6/uL (4.30-5.70); RED CELL DISTRIBUTION WIDTH 15.4 % (11.5-14.5); WHITE BLOOD COUNT 5.8 x10^3/uL (4.0-11.0)
[2019-04-04 16:18] LABS: CALCIUM 8.7 mg/dL (8.5-10.1); CREATININE 1.1 mg/dL (0.7-1.3); GFR 66.6; POTASSIUM 4.3 mmol/L (3.5-5.1)
[2019-04-04 16:23] LABS: ALBUMIN 3.2 g/dL (3.4-5.0); ALBUMIN/GLOBULIN RATIO 0.8 (1.0-1.7); TOTAL BILIRUBIN 0.4 mg/dL (0.2-1.0)
[2019-04-04 16:37] LABS: BASE EXCESS COOX 6 mmol/L (-3-3); HCO3 COOX 33 mmol/L (21-28); METHEMOGLOBIN 0.2 % (0.0-1.9); OXYHEMOGLOBIN 94.9 %; PO2 COOX 92 mmHg (65-108); SAT O2 COOX 96 % (92-99)
[2019-04-04 16:41] LABS: PCO2 COOX 62 mmHg (35-46)
--- NOTE | 2019-04-04 16:41 | EKG ---
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
--- NOTE | 2019-04-04 16:44 | RAD ---
PA and lateral chest radiographs 04/04/2019 CLINICAL HISTORY: Shortness of breath. PA and lateral digital radiographs of the chest were obtained. Comparison study is dated 06/15/2018. The cardiac silhouette is normal in size. The thoracic aorta is minimally tortuous. Prominence of the interstitial markings in both lungs is seen, unchanged. No acute pulmonary infiltrate is noted. No pneumothorax or pleural effusion is seen. There is diffuse osteopenia the visualized bony structures. Degenerative changes are seen involving the thoracic spine. IMPRESSION: No acute pulmonary infiltrate is seen. Electronically signed by: Yandel Shay MD (04/04/2019 4:41 PM) [facility]
[2019-04-04] MEDS ORDERED: IOHEXOL 350 MG/ML 100 ML VIAL. IV ONE (17:30)
[2019-04-04] MEDS ORDERED: CONTRAST GIVEN. MC PRN (17:30)
--- NOTE | 2019-04-04 18:19 | RAD ---
CT ANGIOGRAPHY CHEST Indication: Increasing shortness of breath. . Technique: After intravenous contrast administration, CT imaging was performed of the chest. MIP reconstructions were obtained. Exposure: One or more of the following individualized dose reduction techniques were utilized for this examination: 1. Automated exposure control 2. Adjustment of the mA and/or kV according to patient size 3. Use of iterative reconstruction technique. Findings: No evidence of pulmonary embolism. The aorta is mildly calcified. No evidence of aneurysm. Proximal great vessels appear patent. No evidence of thoracic aortic dissection. No pericardial effusion. Small prevascular mediastinal lymph node measures 8 mm in short axis. No significant hilar or axillary lymph node enlargement. Partially visualized thyroid appears symmetric. No pleural effusion. There are prominent interstitial markings in both lungs. There is a more focal ill-defined opacity in the posterior left upper lobe which measures about 2.5 cm long axis with central lucency or cavity. Trachea and central airways are patent. No evidence of acute bone abnormality. Limited scans through the upper abdomen demonstrate no acute findings IMPRESSION: 1. No evidence of pulmonary embolism. 2. There is an ovoid nodular structure with ill-defined margins and central lucency in the left upper lobe. Could represent scarring, inflammatory/infectious focus or a pulmonary mass. Depending on clinical concern, recommend short-term follow-up CT chest in one or 2 months after acute treatment, or PET/CT scan. Electronically signed by: Brennan Wheat MD (04/04/2019 6:16 PM) [facility]
[2019-04-04] MEDS ORDERED: ONDANSETRON PF 4 MG/2 ML VIAL. IV PRN (18:30)
[2019-04-04 19:56] VITALS: BP 123/65
[2019-04-04] MEDS ORDERED: POTA10TA12 PO (20:15)
[2019-04-04] MEDS ORDERED: ALBUTEROL SULFATE 2.5 MG/3 ML NEBU. NEB PRN (20:30)
[2019-04-04] MEDS: methylPREDNISolone SOD SUCC PF 125 MG/2 ML VIAL. IV SCH (22:33)
[2019-04-04] MEDS: cefTRIAXone IV Push 1 GM VIAL. IVP SCH (22:34)
[2019-04-04 23:22] LABS: BILIRUBIN,URINE NEGATIVE (NEG); CLARITY,URINE CLEAR; COLOR,URINE YELLOW; NITRITE,URINE NEGATIVE (NEG); PH,URINE 8.5; PROTEIN,URINE NEGATIVE (NEG-TRACE)
[2019-04-04 23:28] LABS: BACTERIA,URINE 0 /HPF (0-FEW); RBC,URINE OCC /HPF (0-2)
[2019-04-04 23:29] LABS: SQUAMOUS EPITHELIAL CELL,UR FEW /LPF
[2019-04-04 23:34] VITALS: BP 109/67
[2019-04-05 03:01] VITALS: BP 133/70
[2019-04-05] MEDS: methylPREDNISolone SOD SUCC PF 125 MG/2 ML VIAL. IV SCH ×3 (05:09→21:47)
[2019-04-05] MEDS: IPRATRPIUM/ALBUTEROL 0.5/2.5MG 3 ML NEBU. NEB SCH ×4 (06:23→20:15)
[2019-04-05 07:05] VITALS: BP 120/53
[2019-04-05 08:37] LABS: CHOLESTEROL/HDL RATIO 2.4
[2019-04-05] MEDS ORDERED: CALCIUM CARBONATE 500 MG TAB.CHEW PO PRN (08:45)
[2019-04-05] MEDS ORDERED: ACETAMINOPHEN 325 MG TABLET. PO PRN (08:45)
[2019-04-05] MEDS: FLUTICASONE 50MCG/NASAL SPRAY 16GM BOTTLE. NS SCH (09:00)
[2019-04-05] MEDS ORDERED: SODIUM CHLORIDE 0.65% NASAL SPRAY 45ML BOTTLE. NS PRN (09:00)
[2019-04-05] MEDS: POLYETHYLENE GLYCOL 3350 17 GM PACKET. PO SCH (09:00)
[2019-04-05] MEDS ORDERED: NON FORMULARY ITEM (Tiotropium Bromide (Spiriva) 1 CAP) IH SCH (09:00)
[2019-04-05] MEDS: CARVEDILOL 6.25 MG TABLET. PO SCH ×2 (09:00→18:08)
--- NOTE | 2019-04-05 09:12 | PDOC2 ---
CARDIAC CONSULT DATE OF CONSULT Date of Consult DATE: 04/05/19 TIME: 09:08 REASON FOR CONSULT Reason for Consult: EKG changes REFERRING PHYSICIAN Referring Physician: Brennan Orlando APRN SOURCE Source: Chart review, Patient HISTORY OF PRESENT ILLNESS HISTORY OF PRESENT ILLNESS This is a 68 yo male who presented secondary to shortness of breath. Reports chronic history of LETTY. Worse for the last week. Significantly worse the last 3 days. Had episode of chest pain while driving a couple of days ago. Located across his central chest. No associated dizziness, diaphoresis, palpitations, or nausea/vomiting. Got home and drank baking soda and water. Resolved pain and had not returned. [place] like GERD. PAST MEDICAL HISTORY Cardiovascular: CHF, HTN Pulmonary: COPD CENTRAL NERVOUS SYSTEM: Other (no pertinent hx) GI: GERD Heme/Onc: No pertinent hx Hepatobiliary: No pertinent hx Psych: No pertinent hx Musculoskeletal: Osteoarthritis Infectious disease: No pertinent hx ENT: No pertinent hx Renal/: No pertinent hx Endocrine: Diabetes Dermatology: No pertinent hx PAST SURGICAL HISTORY Past Surgical History: No pertinent history FAMILY HISTORY Family History: Other (noncontributory ) SOCIAL HISTORY Smoke: <1 pack per day ALCOHOL: none Drugs: None Lives: with Family CURRENT MEDICATIONS CURRENT MEDICATIONS Current Medications Medications (Trade) Dose Ordered Sig/Chidi Route PRN Reason Start Time Stop Time Status Last Admin Dose Admin Albuterol/ Ipratropium (Duoneb) 3 ml 1X ONCE NEB 04/04/19 16:00 04/04/19 16:01 DC 04/04/19 15:38 Methylprednisolone Sodium Succinate (SOLU-Medrol 125MG VIAL) 125 mg 1X ONCE IV 04/04/19 16:00 04/04/19 16:01 DC 04/04/19 15:50 Iohexol (Omnipaque 350 Mg/ml) 100 ml 1X ONCE IV 04/04/19 17:30 04/04/19 17:31 DC 04/04/19 17:45 Albuterol/ Ipratropium (Duoneb) 3 ml RTQID NEB 04/05/19 08:00 04/05/19 06:23 Methylprednisolone Sodium Succinate (SOLU-Medrol 125MG VIAL) 60 mg Q8HRS IV 04/04/19 22:00 04/05/19 05:09 Ceftriaxone Sodium (Rocephin) 1 gm Q24H IVP 04/04/19 21:00 04/04/19 22:34 ALLERGIES ALLERGIES: Coded Allergies: No Known Drug Allergies (Unverified , 06/28/16) ROS Review of System 14 point ROS conducted with pertinent positives noted above in HPI. PHYSICAL EXAM General: Alert, Oriented X3, Cooperative, No acute distress HEENT: Atraumatic, Mucous membr. moist/pink Lungs: Other (diminished throughout, fine expiratory wheezing) Heart: Regular rate, Normal S1, Normal S2 Abdomen: Soft, No tenderness Extremities: No edema, Normal pulses Skin: No significant lesion Neuro: Normal speech, Sensation intact Psych/Mental Status: Mental status NL, Mood NL MUSCULOSKELETAL: Osteoarthritic changes both hands VITALS VITALS Vital Signs Date Time Temp Pulse Resp B/P (MAP) Pulse Ox O2 Delivery O2 Flow Rate FiO2 04/05/19 07:05 97.9 92 17 120/53 (75) 96 Nasal Cannula 4.0 97.9 LABS Lab: Laboratory Tests Test 04/04/19 15:36 04/04/19 15:58 04/04/19 16:11 04/05/19 00:30 Urine Collection Type Unknown Urine Color Yellow Urine Clarity Clear Urine pH 8.5 Urine Specific [place] >=1.030 Urine Protein Negative mg/dL (NEG-TRACE) Urine Glucose (UA) Negative mg/dL (NEG) Urine Ketones (Stick) Negative mg/dL (NEG) Urine Blood Negative (NEG) Urine Nitrite Negative (NEG) Urine Bilirubin Negative (NEG) Urine Urobilinogen Dipstick 1.0 mg/dL (0.2 mg/dL) Urine Leukocyte Esterase Negative (NEG) Urine RBC Occ /HPF (0-2) Urine WBC 1-4 /HPF (0-4) Urine Squamous Epithelial Cells Few /LPF Urine Bacteria 0 /HPF (0-FEW) Urine Mucus Slight /LPF White Blood Count 5.8 x10^3/uL (4.0-11.0) Red Blood Count 4.22 x10^6/uL (4.30-5.70) Hemoglobin 11.2 g/dL (13.0-17.5) Hematocrit 34.5 % (39.0-53.0) Mean Corpuscular Volume 82 fL (79-100) Mean Corpuscular Hemoglobin 27 pg (25-35) Mean Corpuscular Hemoglobin Concent 32 g/dL (31-37) Red Cell Distribution Width 15.4 % (11.5-14.5) Platelet Count 128 x10^3/uL (140-400) Neutrophils (%) (Auto) 62 % (31-73) Lymphocytes (%) (Auto) 20 % (24-48) Monocytes (%) (Auto) 13 % (0-9) Eosinophils (%) (Auto) 3 % (0-3) Basophils (%) (Auto) 1 % (0-3) Neutrophils # (Auto) 3.6 x10^3uL (1.8-7.7) Lymphocytes # (Auto) 1.2 x10^3/uL (1.0-4.8) Monocytes # (Auto) 0.8 x10^3/uL (0.0-1.1) Eosinophils # (Auto) 0.2 x10^3/uL (0.0-0.7) Basophils # (Auto) 0.0 x10^3/uL (0.0-0.2) Sodium Level 142 mmol/L (136-145) Potassium Level 4.3 mmol/L (3.5-5.1) Chloride Level 102 mmol/L (98-107) Carbon Dioxide Level 33 mmol/L (21-32) Anion Gap 7 (6-14) Blood Urea Nitrogen 18 mg/dL (8-26) Creatinine 1.1 mg/dL (0.7-1.3) Estimated GFR (Cockcroft-Gault) 66.6 BUN/Creatinine Ratio 16 (6-20) Glucose Level 108 mg/dL (70-99) Lactic Acid Level 0.7 mmol/L (0.4-2.0) Calcium Level 8.7 mg/dL (8.5-10.1) Total Bilirubin 0.4 mg/dL (0.2-1.0) Aspartate Amino Transf (AST/SGOT) 14 U/L (15-37) Alanine Aminotransferase (ALT/SGPT) 13 U/L (16-63) Alkaline Phosphatase 101 U/L (46-116) Troponin I Quantitative < 0.017 ng/mL (0.000-0.055) < 0.017 ng/mL (0.000-0.055) [place]-Ndw-L-Type Natriuretic Peptide 140 pg/mL (0-124) Total Protein 7.0 g/dL (6.4-8.2) Albumin 3.2 g/dL (3.4-5.0) Albumin/Globulin Ratio 0.8 (1.0-1.7) O2 Saturation 96 % (92-99) Arterial Blood pH 7.34 (7.35-7.45) Arterial Blood pCO2 at Patient Temp 62 mmHg (35-46) Arterial Blood pO2 at Patient Temp 92 mmHg (65-108) Arterial Blood HCO3 33 mmol/L (21-28) Arterial Blood Base Excess 6 mmol/L (-3-3) Oxyhemoglobin 94.9 % Methemoglobin 0.2 % (0.0-1.9) Carbon Monoxide, Quantitative 0.4 % (0.0-1.9) FiO2 50% Test 04/05/19 06:00 Troponin I Quantitative < 0.017 ng/mL (0.000-0.055) Triglycerides Level 43 mg/dL (0-150) Cholesterol Level 199 mg/dL (0-200) LDL Cholesterol, Calculated 107 mg/dL (0-100) VLDL Cholesterol, Calculated 9 mg/dL (0-40) Non-HDL Cholesterol Calculated 116 mg/dL (0-129) HDL Cholesterol 83 mg/dL (40-60) Cholesterol/HDL Ratio 2.4 ASSESSMENT/PLAN ASSESSMENT/PLAN 1. Acute on chronic respiratory failure with AECOPD and tobaccoism 2. Chronic diastolic HF; clinically compensated 3. Hypertension; controlled 4. Diabetes, II; as per PCP 5. Abnormal EKG; EKG with t-wave inversion of V1,V2 6. Chest pain, atypical. Episodic-resolved with baking soda and water. AMI ruled out. 7. GERD Recommendations Echo to assess LV systolic function Lipid panel Consider outpatient ischemic evaluation unless echo significant abnormal Discussed/encouraged smoking cessation. Follow pulmonary recs Supportive care ENEDELIA LAINEZ APRN April 05, 2019 09:12
[2019-04-05] MEDS: ASPIRIN CHEWABLE 81 MG TABLET. PO SCH (09:16)
[2019-04-05] MEDS: FUROSEMIDE 40 MG TABLET. PO SCH (09:17)
[2019-04-05] MEDS: SENNOSIDES/DOCUSATE 8.6/50MG TABLET. PO SCH ×2 (09:17→21:47)
[2019-04-05] MEDS: POTASSIUM CHLORIDE 10 MEQ TABLET.ER. PO SCH (09:17)
--- NOTE | 2019-04-05 09:17 | EKG ---
[facility] [address] [place] [address] Test Date: 2019-04-05 Test Time: 08:52:04 Pat Name: TONYA GALLARDO Department: Room: 675 1 Gender: M Report Developer: : 1950 Requested By: ASHWIN RESENDIZ Order Number: [id number] Reading MD: Lito Rueda Measurements Intervals [place] Rate: 60 P: 0 CT: 148 QRS: 29 QRSD: 74 T: 33 QT: 420 QTc: 420 Interpretive Statements SINUS RHYTHM ATRIAL PREMATURE COMPLEX(ES) LOW LIMB LEAD VOLTAGE Electronically Signed On 04-30-2019 11:39:12 CDT by Lito Rueda
--- NOTE | 2019-04-05 09:59 | PDOC ---
Provider Note Provider Note Patient seen. History and Physical dictated. See dictation#[id number] LEXX SHOEMAKER MD April 05, 2019 09:59
--- NOTE | 2019-04-05 10:47 | HP ---
ADMIT DATE: 04/04/2019 HISTORY OF PRESENT ILLNESS: This 68-year-old -[place] male who is known to have severe COPD and respiratory failure, on oxygen by nasal cannula 4 liters per minute at home, started becoming more and more short of breath in the last 2 days. He also had more swelling in the legs. In the Emergency Room, the patient's oxygen saturation was 79-82%, and he was also noted to be much more short of breath. CT scan of chest showed no PE, but showed a possible left upper lobe mass versus inflammation and pneumonia or scarring. Because of the acute exacerbation of COPD, the patient was admitted for further evaluation and management. In the Emergency Room, EKG had shown ST elevation in 2, 3, aVF and 0.[address] depression in V1, V2, V3 per ER physician, so digital ad trafficker was consulted. REVIEW OF SYSTEMS: At present time, the patient is complaining of dyspnea, cough, or congestion. Denies any chest pains. He denies any palpitations, but he is not able to walk or do any activity without getting very short of breath. Denies any nausea, vomiting, abdominal pain. Other systems reviewed and are negative. PAST MEDICAL HISTORY: The patient was last admitted here in 03/2018 for exacerbation of COPD. He is known to have CHF, right-sided, with ejection fraction normal. Hypertension, COPD with chronic respiratory failure, oxygen dependent at 4 liters per minute. Chronic kidney disease stage 2. Diabetes type 2, diet controlled. Anxiety. PAST SURGICAL HISTORY: Not pertinent. FAMILY HISTORY: Mother had coronary artery disease and there is history of lung disease in the family. SOCIAL HISTORY: Past history of smoking. No history of alcoholism or drug abuse. MEDICATIONS: Reviewed and reconciled. ALLERGIES: None known any. PHYSICAL EXAMINATION: GENERAL: The patient is an elderly -[place] male who is alert, oriented and in moderate respiratory distress. He appears to be chronically ill. EYES: Pupils reacting to light. Conjunctivae pale. Sclerae muddy. HENT: Unremarkable. SKIN: Warm and dry. There is no cyanosis. VITAL SIGNS: The patient is on oxygen by nasal cannula 4 liters per minute. LUNGS: Bilateral wheezing. CARDIOVASCULAR: S1, S2 regular. ABDOMEN: Soft, nontender, no guarding, no rigidity. Bowel sounds present. EXTREMITIES: Edema present. The patient appears to have had gained some weight. LABORATORY FINDINGS: WBC count 5.8, hemoglobin 11.2, platelet count is 228,000. Sodium 142, potassium 4.3, BUN 18, creatinine 1.1, albumin 3.2. Urinalysis negative. Blood gas shows a pH of 7.34, pCO2 of 62 and pO2 of 92 on 50% FiO2. CT scan of the lungs as noted earlier. Previous CT scan of the lung in 01/2018 showed a right upper lung calcified granuloma. IMPRESSION: 1. Pneumonia. 2. Exacerbation of chronic obstructive pulmonary disease. 3. Possible mass in the left upper lung. 4. Acute on chronic hypoxic and hypercapnic respiratory failure. 5. Right heart failure. 6. Abnormal EKG. 7. Hypertension. 8. Diabetes mellitus type 2, diet controlled. 9. Emphysema, centrilobular 10. Hypertension with chronic kidney disease 2. 11. Physical deconditioning. PLAN: Consult Dr. Perez for cardiology evaluation and management. Consult Dr. Garcia for pulmonary evaluation and management. Start IV steroids, IV Rocephin and Zithromax. For details, please refer to the orders. LEXX SHOEMAKER MD DR: BEBETO/aretha JOB#: [id number] / [id number]
[2019-04-05 10:50] VITALS: BP 127/70
[2019-04-05] MEDS: AZITHROMYCIN 500 MG in IV NORMAL SALINE 250ML 250 ML IV SCH (10:54)
[2019-04-05] MEDS ORDERED: IPRATRPIUM/ALBUTEROL 0.5/2.5MG 3 ML NEBU. NEB SCH (12:00)
[2019-04-05] MEDS ORDERED: LACTOBACILLUS RHAMNOSUS GG 1 CAPSULE. PO SCH (12:00)
[2019-04-05 14:57] VITALS: BP 117/68
--- NOTE | 2019-04-05 15:30 | CARD ---
MR#: [id number] Date of Study: 04/05/2019 Ordering Physician: ENEDELIA LAINEZ, Referring Physician: ASHWIN RESENDIZ Tech: Ginny Ford RDCS APPROVED REPORT EXAM: Two-dimensional and M-mode echocardiogram with Doppler and color Doppler. Other Information Quality : Good INDICATION Abnormal ECG 2D DIMENSIONS RVDd4.0 (2.9-3.5cm)Left Atrium(2D)3.7 (1.6-4.0cm) IVSd0.9 (0.7-1.1cm)Aortic Root(2D)3.2 (2.0-3.7cm) LVDd4.3 (3.9-5.9cm)LVOT Diameter2.0 (1.8-2.4cm) PWd0.8 (0.7-1.1cm)LVDs2.5 (2.5-4.0cm) FS (%) 30.0 %SV61.5 ml LVEF(%)60.0 (>50%) Aortic Valve AoV Peak Santi.118.7cm/sAoV VTI22.2cm AO Peak GR.5.6mmHgLVOT VTI 17.93cm AO Mean GR.3mmHgAVA (VTI)2.50cm2 Mitral Valve MV E Wsbrabsi39.3cm/sMV DECEL KRHU239al MV A Txpwmlrk676.3cm/sE/A Ratio0.7 TDI Lateral E' P. V9.65cm/sMedial E' P. V4.96cm/s E/Lateral E'7.5E/Medial E'14.6 Tricuspid Valve TR P. Ynqxmint558qq/sRAP KUXDBSAX6emTe TR Peak Gr.77fxCcFNGG98mhAm Pulmonary Vein S1 Qjcgoipg96.3cm/sS2 Ptrbntjm35.21cm/s D2 Fthegyfd81.2cm/s LEFT VENTRICLE The left ventricle is normal size. There is normal left ventricular wall thickness. The left ventricu lar systolic function is normal and the ejection fraction is within normal range. The Ejection Fracti on is 55-60%. There is normal LV segmental wall motion. Transmitral Doppler flow pattern is Grade I-a bnormal relaxation pattern. RIGHT VENTRICLE The right ventricle is mildly to moderately dilated. The right ventricular systolic function is umm l. ATRIA The left atrium size is normal. The right atrium is mildly dilated. The interatrial septum is intact with no evidence for an atrial septal defect or patent foramen ovale as noted on 2-D or Doppler imagi ng. AORTIC VALVE The aortic valve is calcified but opens well. Doppler and Color Flow revealed no significant aortic r egurgitation. There is no significant aortic valvular stenosis. MITRAL VALVE The mitral valve is calcified but opens well. There is no evidence of mitral valve prolapse. There is no mitral valve stenosis. Doppler and Color-flow revealed trace mitral regurgitation. TRICUSPID VALVE The tricuspid valve is normal in structure and function. Doppler and Color Flow revealed mild tricusp id regurgitation. There is severe pulmonary hypertension. The PA pressure was estimated at 76 mmHg. T here is no tricuspid valve stenosis. PULMONIC VALVE The pulmonic valve is not well visualized. Doppler and Color Flow revealed trace pulmonic valvular re gurgitation. There is no pulmonic valvular stenosis. GREAT VESSELS The aortic root is normal in size. The ascending aorta is normal in size. The IVC is normal in size a nd collapses >50% with inspiration. PERICARDIAL EFFUSION There is no evidence of significant pericardial effusion. Critical Notification Critical Value: No <Conclusion> The left ventricular systolic function is normal and the ejection fraction is within normal range. Th e Ejection Fraction is 55-60%. There is normal LV segmental wall motion. The right ventricle is mildly to moderately dilated. Doppler and Color Flow revealed mild tricuspid regurgitation. There is severe pulmonary hypertension. The PA pressure was estimated at 76 mmHg. Signed by : Jens Perez, Electronically Approved : 04/05/2019 15:29:42
--- NOTE | 2019-04-05 15:31 | NUR ---
SW following pt for anticipated dc needs. Chart reviewed. Pt lives at home with significant other. No dc recommendation or SW needs noted at this time. Will continue to follow.
--- NOTE | 2019-04-05 17:56 | PDOC ---
PULMONARY PROGRESS NOTES Vitals Vital Signs Date Time Temp Pulse Resp B/P (MAP) Pulse Ox O2 Delivery O2 Flow Rate FiO2 04/05/19 16:10 91 Nasal Cannula 5.0 04/05/19 14:57 98.0 91 18 117/68 (84) 98.0 General: Alert Lungs: Wheezing Cardiovascular: S1 Abdomen: Soft, Non-tender Extremities: No Edema Labs Laboratory Tests Test 04/04/19 15:36 04/04/19 15:58 04/04/19 16:11 04/05/19 00:30 Urine Collection Type Unknown Urine Color Yellow Urine Clarity Clear Urine pH 8.5 Urine Specific [place] >=1.030 Urine Protein Negative mg/dL (NEG-TRACE) Urine Glucose (UA) Negative mg/dL (NEG) Urine Ketones (Stick) Negative mg/dL (NEG) Urine Blood Negative (NEG) Urine Nitrite Negative (NEG) Urine Bilirubin Negative (NEG) Urine Urobilinogen Dipstick 1.0 mg/dL (0.2 mg/dL) Urine Leukocyte Esterase Negative (NEG) Urine RBC Occ /HPF (0-2) Urine WBC 1-4 /HPF (0-4) Urine Squamous Epithelial Cells Few /LPF Urine Bacteria 0 /HPF (0-FEW) Urine Mucus Slight /LPF White Blood Count 5.8 x10^3/uL (4.0-11.0) Red Blood Count 4.22 x10^6/uL (4.30-5.70) Hemoglobin 11.2 g/dL (13.0-17.5) Hematocrit 34.5 % (39.0-53.0) Mean Corpuscular Volume 82 fL (79-100) Mean Corpuscular Hemoglobin 27 pg (25-35) Mean Corpuscular Hemoglobin Concent 32 g/dL (31-37) Red Cell Distribution Width 15.4 % (11.5-14.5) Platelet Count 128 x10^3/uL (140-400) Neutrophils (%) (Auto) 62 % (31-73) Lymphocytes (%) (Auto) 20 % (24-48) Monocytes (%) (Auto) 13 % (0-9) Eosinophils (%) (Auto) 3 % (0-3) Basophils (%) (Auto) 1 % (0-3) Neutrophils # (Auto) 3.6 x10^3uL (1.8-7.7) Lymphocytes # (Auto) 1.2 x10^3/uL (1.0-4.8) Monocytes # (Auto) 0.8 x10^3/uL (0.0-1.1) Eosinophils # (Auto) 0.2 x10^3/uL (0.0-0.7) Basophils # (Auto) 0.0 x10^3/uL (0.0-0.2) Sodium Level 142 mmol/L (136-145) Potassium Level 4.3 mmol/L (3.5-5.1) Chloride Level 102 mmol/L (98-107) Carbon Dioxide Level 33 mmol/L (21-32) Anion Gap 7 (6-14) Blood Urea Nitrogen 18 mg/dL (8-26) Creatinine 1.1 mg/dL (0.7-1.3) Estimated GFR (Cockcroft-Gault) 66.6 BUN/Creatinine Ratio 16 (6-20) Glucose Level 108 mg/dL (70-99) Lactic Acid Level 0.7 mmol/L (0.4-2.0) Calcium Level 8.7 mg/dL (8.5-10.1) Total Bilirubin 0.4 mg/dL (0.2-1.0) Aspartate Amino Transf (AST/SGOT) 14 U/L (15-37) Alanine Aminotransferase (ALT/SGPT) 13 U/L (16-63) Alkaline Phosphatase 101 U/L (46-116) Troponin I Quantitative < 0.017 ng/mL (0.000-0.055) < 0.017 ng/mL (0.000-0.055) OU-Ced-S-Type Natriuretic Peptide 140 pg/mL (0-124) Total Protein 7.0 g/dL (6.4-8.2) Albumin 3.2 g/dL (3.4-5.0) Albumin/Globulin Ratio 0.8 (1.0-1.7) O2 Saturation 96 % (92-99) Arterial Blood pH 7.34 (7.35-7.45) Arterial Blood pCO2 at Patient Temp 62 mmHg (35-46) Arterial Blood pO2 at Patient Temp 92 mmHg (65-108) Arterial Blood HCO3 33 mmol/L (21-28) Arterial Blood Base Excess 6 mmol/L (-3-3) Oxyhemoglobin 94.9 % Methemoglobin 0.2 % (0.0-1.9) Carbon Monoxide, Quantitative 0.4 % (0.0-1.9) FiO2 50% Test 04/05/19 06:00 04/05/19 12:05 Troponin I Quantitative < 0.017 ng/mL (0.000-0.055) < 0.017 ng/mL (0.000-0.055) Triglycerides Level 43 mg/dL (0-150) Cholesterol Level 199 mg/dL (0-200) LDL Cholesterol, Calculated 107 mg/dL (0-100) VLDL Cholesterol, Calculated 9 mg/dL (0-40) Non-HDL Cholesterol Calculated 116 mg/dL (0-129) HDL Cholesterol 83 mg/dL (40-60) Cholesterol/HDL Ratio 2.4 Laboratory Tests Test 04/05/19 00:30 04/05/19 06:00 04/05/19 12:05 Troponin I Quantitative < 0.017 ng/mL (0.000-0.055) < 0.017 ng/mL (0.000-0.055) < 0.017 ng/mL (0.000-0.055) Triglycerides Level 43 mg/dL (0-150) Cholesterol Level 199 mg/dL (0-200) LDL Cholesterol, Calculated 107 mg/dL (0-100) VLDL Cholesterol, Calculated 9 mg/dL (0-40) Non-HDL Cholesterol Calculated 116 mg/dL (0-129) HDL Cholesterol 83 mg/dL (40-60) Cholesterol/HDL Ratio 2.4 Medications Active Scripts Medications Dose Route/Sig Max Daily Dose Days Date Category Dose Instructions Potassium Chloride 10 Meq Tab.sr.24h 10 Meq PO DAILY 04/04/19 Reported Flomax (Tamsulosin Hcl) 0.4 Mg Cap.er.24h 1 Cap PO HS 06/18/18 Rx Prednisone (Prednisone) 10 Mg Tablet 10 Mg PO UD 06/18/18 Rx 4 tab x 4d 3 tab x 4d, 2 tab x 4d and 1 tab x 4d Klor-Con 10 (Potassium Chloride) 10 Meq Tablet.er 10 Meq PO TIDAFTMEAL 06/18/18 Rx Furosemide 40 Mg Tablet 40 Mg PO DAILY 06/18/18 Rx Omeprazole 20 Mg Tablet.dr 1 Tab PO DAILY 06/16/18 Reported Polyethylene Glycol 3350 255 Gm Powder 17 Gm PO DAILY 04/06/18 Rx Senna-Time S Tablet (Sennosides/Docusate Sodium) 1 Each Tablet 1 Tab PO BID 04/06/18 Rx Fluticasone Propionate Nasal [place] (Fluticasone Propionate) 16 Gm [place].susp 2 [place] NS DAILY 04/06/18 Rx Calcium Carbonate 200 Mg Tab.chew 500 Mg PO PRN QID PRN 02/16/18 Rx [place] (Sodium Chloride) 44 Ml [place] 2 [place] NS PRN Q3HRS PRN 02/16/18 Rx Spiriva (Tiotropium [place]) 18 Mcg Cap.w.dev 1 Cap IH DAILY 07/01/16 Rx Duoneb 0.5-3(2.5) Mg/3 Ml (Albuterol/Ipratropium) 3 Ml Ampul.neb 3 Ml NEB RTQID 07/01/16 Rx Carvedilol (Carvedilol) 6.25 Mg Tablet 6.25 Mg PO BIDWMEALS 07/01/16 Rx Children's Aspirin (Aspirin) 81 Mg Tab.chew 81 Mg PO DAILYWBKFT 07/01/16 Rx Symbicort 160-4.5 Mcg Inhaler (Budesonide/Formoterol Fumarate) 10.2 Gm Hfa.aer.ad 2 Puff IH BID 07/01/16 Rx Impression . NOTE DICTATED A/C RESP FAILURE ANITA MASS A/C COR PULMONALE OUT PT PET IF POSITIVE BIOPSY IF NEGATIVE WILL PROCEED WITH REPEAT CT IN 2 MONTHS CASE D/W DR SARMIENTO HIGH RISK OF PTX AND SMALL AT THIS TIME MAY NOT GET A GOOD SAMPLE MELITON IRWIN MD April 05, 2019 17:56
[2019-04-05 19:15] VITALS: BP 137/75
[2019-04-05] MEDS: BUDESONIDE 0.5 MG/2 ML NEBU. NEB SCH (20:15)
[2019-04-05] MEDS: cefTRIAXone IV Push 1 GM VIAL. IVP SCH (21:47)
[2019-04-05] MEDS: TAMSULOSIN 0.4 MG CAP.ER.24H. PO SCH (21:47)
[2019-04-05 23:15] VITALS: BP 131/67
[2019-04-06 03:56] VITALS: BP 136/78
--- NOTE | 2019-04-06 06:01 | CONS ---
DATE OF CONSULTATION: 04/05/2019 ATTENDING PHYSICIAN: Dr. Mirtha Ross. REASON FOR CONSULTATION: The patient is seen in pulmonary consultation at the request of Dr. Ross for increasing shortness of air, acute on chronic hypoxemia. HISTORY OF PRESENT ILLNESS: The patient is a 63-year-old male with COPD, chronic respiratory failure, normally wears oxygen at home 4 liters, became more short of breath over the last 2 days prior to admission, increasing lower extremity edema. Despite his oxygen supplementation, he had saturation of 82%. CT scan of the chest was obtained. There was no evidence of pulmonary emboli. There was significant evidence of fibrosis, which has progressed and interstitial lung markings, which have also progressed. He did have a new left upper lobe nodular density with some cavitation. I reviewed the CT from 02/14/2018. He did not have a left upper lobe density at that time. PAST MEDICAL HISTORY: 1. Chronic respiratory failure, severe COPD of the emphysematous type along with interstitial lung disease, which has progressed on CT scan that was compared to 02/14/2018. 2. Chronic heart failure. 3. Severe secondary pulmonary hypertension, pulmonary artery pressure measured at 76 mmHg. 4. Chronic kidney disease. 5. Diabetes, type 2. PAST SURGICAL HISTORY: No recent major surgery. FAMILY HISTORY: Coronary artery disease, also history of COPD. SOCIAL HISTORY: He continues to smoke. No history of alcoholism. CURRENT MEDICATIONS: List was reviewed. HOME MEDICATIONS: List was likewise reviewed. ALLERGIES: No known drug allergies. REVIEW OF SYSTEMS: CONSTITUTIONAL: No fever or chills. EYES: No change in visual acuity. HEENT: No nasal congestion or sore throat. PULMONARY: As indicated above. CARDIOVASCULAR: No chest pain. No pressure. GASTROINTESTINAL: No nausea, vomiting or diarrhea. GENITOURINARY: No dysuria or frequency. MUSCULOSKELETAL: No localized muscle aches or joint pain. SKIN: No new skin rashes. NEUROLOGIC: No headaches, diplopia or blurred vision. PHYSICAL EXAMINATION: VITAL SIGNS: The patient is currently on 4-5 liters of oxygen supplementation, saturation greater than 92%. At one point, he required 15 liters. HEENT: Eyes, the sclerae were nonicteric. NECK: Jugular venous distention was slightly elevated. CHEST: Full expansion. LUNGS: Crackles diffusely with expiratory wheeze. CARDIOVASCULAR: Regular rate and rhythm with S1, S2. No S3. ABDOMEN: Soft, nontender, nondistended. EXTREMITIES: No clubbing, cyanosis. Has 1+ edema. NEUROLOGIC: The patient was awake, alert, following commands. A detailed neuro exam was not performed. LABORATORY DATA: Arterial blood gas, pH of 7.34, paCO2 of 62, paO2 of 92, bicarbonate was 33. White count was normal, hemoglobin and hematocrit 11 and 34. Electrolytes were noted. BUN was 18, creatinine was 1.1. BNP was slightly elevated at 140. IMPRESSION: 1. Acute on chronic hypoxemic hypercapnic respiratory failure. 2. Acute exacerbation of chronic obstructive pulmonary disease. 3. Underlying severe emphysema with interstitial lung disease. 4. New left upper lobe pulmonary nodule with some cavitation. The nodule was not present on the CT scan of 02/14/2018. 5. Tobacco dependence. 6. Chronic heart failure. 7. Hypertension. 8. Type 2 diabetes. 9. Secondary pulmonary hypertension, pulmonary artery pressure measured at 76. 10. Acute on chronic cor pulmonale. PLAN: 1. Recommend treatment with steroids and antibiotics. 2. Nebulized treatments. 3. Continue home medications. 4. Diurese. 5. I reviewed the current findings of left upper lobe nodule with the patient. I went over the possibility of fine needle aspiration, which would certainly cause a pneumothorax, versus PET scanning as an outpatient. The patient has elected to proceed with PET scanning. If the PET scan is positive, we will proceed with biopsy. If it is negative, repeat CT chest in 2 months. For now, we will continue treatment for acute bronchitis and acute cor pulmonale. Ultimately, the patient may require right heart catheterization to accurately diagnose pulmonary arterial hypertension. I have noted that Cardiology has been consulted. Very complex situation in decision making in this particular presentation. I do appreciate the privilege in sharing in the patient's care. MELITON IRWIN MD DR: ADAMS/aretha JOB#: [id number] / [id number]
[2019-04-06] MEDS: methylPREDNISolone SOD SUCC PF 125 MG/2 ML VIAL. IV SCH ×3 (06:19→20:51)
[2019-04-06 07:15] VITALS: BP 154/83
[2019-04-06 07:48] LABS: BASO % 0 % (0-3); EOS % 0 % (0-3); HEMATOCRIT 34.6 % (39.0-53.0); HEMOGLOBIN 11.7 g/dL (13.0-17.5); LYMPH # 0.7 x10^3/uL (1.0-4.8); LYMPH % 10 % (24-48); MEAN CORPUSCULAR HEMOGLOBIN 27 pg (25-35); MEAN CORPUSCULAR HGB CONC 34 g/dL (31-37); MEAN CORPUSCULAR VOLUME 80 fL (79-100); MONO # 0.3 x10^3/uL (0.0-1.1); MONO % 5 % (0-9); NEUT # 5.9 x10^3uL (1.8-7.7); NEUT % 86 % (31-73); PLATELET COUNT 130 x10^3/uL (140-400); RED BLOOD COUNT 4.32 x10^6/uL (4.30-5.70); RED CELL DISTRIBUTION WIDTH 14.9 % (11.5-14.5); WHITE BLOOD COUNT 6.9 x10^3/uL (4.0-11.0)
[2019-04-06] MEDS: PANTOPRAZOLE 40 MG TABLET.DR. PO SCH (07:48)
[2019-04-06 08:00] LABS: CALCIUM 9.6 mg/dL (8.5-10.1); CREATININE 1.1 mg/dL (0.7-1.3); GFR 66.6
[2019-04-06] MEDS: BUDESONIDE 0.5 MG/2 ML NEBU. NEB SCH ×2 (08:01→20:34)
[2019-04-06] MEDS: IPRATRPIUM/ALBUTEROL 0.5/2.5MG 3 ML NEBU. NEB SCH ×4 (08:01→20:34)
[2019-04-06] MEDS: FLUTICASONE 50MCG/NASAL SPRAY 16GM BOTTLE. NS SCH (08:21)
[2019-04-06] MEDS: CARVEDILOL 6.25 MG TABLET. PO SCH ×2 (08:22→17:33)
[2019-04-06] MEDS: ASPIRIN CHEWABLE 81 MG TABLET. PO SCH (08:23)
[2019-04-06] MEDS: SENNOSIDES/DOCUSATE 8.6/50MG TABLET. PO SCH ×2 (08:23→20:50)
[2019-04-06] MEDS: POTASSIUM CHLORIDE 10 MEQ TABLET.ER. PO SCH (08:23)
[2019-04-06] MEDS: FUROSEMIDE 40 MG TABLET. PO SCH (08:24)
[2019-04-06] MEDS: POLYETHYLENE GLYCOL 3350 17 GM PACKET. PO SCH (08:25)
--- NOTE | 2019-04-06 08:30 | PDOC ---
PULMONARY PROGRESS NOTES Subjective less soa Vitals Vital Signs Date Time Temp Pulse Resp B/P (MAP) Pulse Ox O2 Delivery O2 Flow Rate FiO2 04/06/19 08:22 77 150/80 04/06/19 08:01 95 Nasal Cannula 5.0 04/06/19 07:15 97.6 16 97.6 General: Alert, No acute distress Lungs: Other Cardiovascular: S1 Abdomen: Soft, Non-tender Neuro Exam: Alert Extremities: No Edema Skin: Warm Labs Laboratory Tests Test 04/04/19 15:36 04/04/19 15:58 04/04/19 16:11 04/05/19 00:30 Urine Collection Type Unknown Urine Color Yellow Urine Clarity Clear Urine pH 8.5 Urine Specific [place] >=1.030 Urine Protein Negative mg/dL (NEG-TRACE) Urine Glucose (UA) Negative mg/dL (NEG) Urine Ketones (Stick) Negative mg/dL (NEG) Urine Blood Negative (NEG) Urine Nitrite Negative (NEG) Urine Bilirubin Negative (NEG) Urine Urobilinogen Dipstick 1.0 mg/dL (0.2 mg/dL) Urine Leukocyte Esterase Negative (NEG) Urine RBC Occ /HPF (0-2) Urine WBC 1-4 /HPF (0-4) Urine Squamous Epithelial Cells Few /LPF Urine Bacteria 0 /HPF (0-FEW) Urine Mucus Slight /LPF White Blood Count 5.8 x10^3/uL (4.0-11.0) Red Blood Count 4.22 x10^6/uL (4.30-5.70) Hemoglobin 11.2 g/dL (13.0-17.5) Hematocrit 34.5 % (39.0-53.0) Mean Corpuscular Volume 82 fL (79-100) Mean Corpuscular Hemoglobin 27 pg (25-35) Mean Corpuscular Hemoglobin Concent 32 g/dL (31-37) Red Cell Distribution Width 15.4 % (11.5-14.5) Platelet Count 128 x10^3/uL (140-400) Neutrophils (%) (Auto) 62 % (31-73) Lymphocytes (%) (Auto) 20 % (24-48) Monocytes (%) (Auto) 13 % (0-9) Eosinophils (%) (Auto) 3 % (0-3) Basophils (%) (Auto) 1 % (0-3) Neutrophils # (Auto) 3.6 x10^3uL (1.8-7.7) Lymphocytes # (Auto) 1.2 x10^3/uL (1.0-4.8) Monocytes # (Auto) 0.8 x10^3/uL (0.0-1.1) Eosinophils # (Auto) 0.2 x10^3/uL (0.0-0.7) Basophils # (Auto) 0.0 x10^3/uL (0.0-0.2) Sodium Level 142 mmol/L (136-145) Potassium Level 4.3 mmol/L (3.5-5.1) Chloride Level 102 mmol/L (98-107) Carbon Dioxide Level 33 mmol/L (21-32) Anion Gap 7 (6-14) Blood Urea Nitrogen 18 mg/dL (8-26) Creatinine 1.1 mg/dL (0.7-1.3) Estimated GFR (Cockcroft-Gault) 66.6 BUN/Creatinine Ratio 16 (6-20) Glucose Level 108 mg/dL (70-99) Lactic Acid Level 0.7 mmol/L (0.4-2.0) Calcium Level 8.7 mg/dL (8.5-10.1) Total Bilirubin 0.4 mg/dL (0.2-1.0) Aspartate Amino Transf (AST/SGOT) 14 U/L (15-37) Alanine Aminotransferase (ALT/SGPT) 13 U/L (16-63) Alkaline Phosphatase 101 U/L (46-116) Troponin I Quantitative < 0.017 ng/mL (0.000-0.055) < 0.017 ng/mL (0.000-0.055) RW-Pzv-U-Type Natriuretic Peptide 140 pg/mL (0-124) Total Protein 7.0 g/dL (6.4-8.2) Albumin 3.2 g/dL (3.4-5.0) Albumin/Globulin Ratio 0.8 (1.0-1.7) O2 Saturation 96 % (92-99) Arterial Blood pH 7.34 (7.35-7.45) Arterial Blood pCO2 at Patient Temp 62 mmHg (35-46) Arterial Blood pO2 at Patient Temp 92 mmHg (65-108) Arterial Blood HCO3 33 mmol/L (21-28) Arterial Blood Base Excess 6 mmol/L (-3-3) Oxyhemoglobin 94.9 % Methemoglobin 0.2 % (0.0-1.9) Carbon Monoxide, Quantitative 0.4 % (0.0-1.9) FiO2 50% Test 04/05/19 06:00 04/05/19 12:05 04/06/19 06:53 Troponin I Quantitative < 0.017 ng/mL (0.000-0.055) < 0.017 ng/mL (0.000-0.055) Triglycerides Level 43 mg/dL (0-150) Cholesterol Level 199 mg/dL (0-200) LDL Cholesterol, Calculated 107 mg/dL (0-100) VLDL Cholesterol, Calculated 9 mg/dL (0-40) Non-HDL Cholesterol Calculated 116 mg/dL (0-129) HDL Cholesterol 83 mg/dL (40-60) Cholesterol/HDL Ratio 2.4 White Blood Count 6.9 x10^3/uL (4.0-11.0) Red Blood Count 4.32 x10^6/uL (4.30-5.70) Hemoglobin 11.7 g/dL (13.0-17.5) Hematocrit 34.6 % (39.0-53.0) Mean Corpuscular Volume 80 fL (79-100) Mean Corpuscular Hemoglobin 27 pg (25-35) Mean Corpuscular Hemoglobin Concent 34 g/dL (31-37) Red Cell Distribution Width 14.9 % (11.5-14.5) Platelet Count 130 x10^3/uL (140-400) Neutrophils (%) (Auto) 86 % (31-73) Lymphocytes (%) (Auto) 10 % (24-48) Monocytes (%) (Auto) 5 % (0-9) Eosinophils (%) (Auto) 0 % (0-3) Basophils (%) (Auto) 0 % (0-3) Neutrophils # (Auto) 5.9 x10^3uL (1.8-7.7) Lymphocytes # (Auto) 0.7 x10^3/uL (1.0-4.8) Monocytes # (Auto) 0.3 x10^3/uL (0.0-1.1) Eosinophils # (Auto) 0.0 x10^3/uL (0.0-0.7) Basophils # (Auto) 0.0 x10^3/uL (0.0-0.2) Sodium Level 138 mmol/L (136-145) Potassium Level 4.0 mmol/L (3.5-5.1) Chloride Level 99 mmol/L (98-107) Carbon Dioxide Level 31 mmol/L (21-32) Anion Gap 8 (6-14) Blood Urea Nitrogen 20 mg/dL (8-26) Creatinine 1.1 mg/dL (0.7-1.3) Estimated GFR (Cockcroft-Gault) 66.6 Glucose Level 132 mg/dL (70-99) Calcium Level 9.6 mg/dL (8.5-10.1) Laboratory Tests Test 04/05/19 12:05 04/06/19 06:53 Troponin I Quantitative < 0.017 ng/mL (0.000-0.055) White Blood Count 6.9 x10^3/uL (4.0-11.0) Red Blood Count 4.32 x10^6/uL (4.30-5.70) Hemoglobin 11.7 g/dL (13.0-17.5) Hematocrit 34.6 % (39.0-53.0) Mean Corpuscular Volume 80 fL (79-100) Mean Corpuscular Hemoglobin 27 pg (25-35) Mean Corpuscular Hemoglobin Concent 34 g/dL (31-37) Red Cell Distribution Width 14.9 % (11.5-14.5) Platelet Count 130 x10^3/uL (140-400) Neutrophils (%) (Auto) 86 % (31-73) Lymphocytes (%) (Auto) 10 % (24-48) Monocytes (%) (Auto) 5 % (0-9) Eosinophils (%) (Auto) 0 % (0-3) Basophils (%) (Auto) 0 % (0-3) Neutrophils # (Auto) 5.9 x10^3uL (1.8-7.7) Lymphocytes # (Auto) 0.7 x10^3/uL (1.0-4.8) Monocytes # (Auto) 0.3 x10^3/uL (0.0-1.1) Eosinophils # (Auto) 0.0 x10^3/uL (0.0-0.7) Basophils # (Auto) 0.0 x10^3/uL (0.0-0.2) Sodium Level 138 mmol/L (136-145) Potassium Level 4.0 mmol/L (3.5-5.1) Chloride Level 99 mmol/L (98-107) Carbon Dioxide Level 31 mmol/L (21-32) Anion Gap 8 (6-14) Blood Urea Nitrogen 20 mg/dL (8-26) Creatinine 1.1 mg/dL (0.7-1.3) Estimated GFR (Cockcroft-Gault) 66.6 Glucose Level 132 mg/dL (70-99) Calcium Level 9.6 mg/dL (8.5-10.1) Medications Active Scripts Medications Dose Route/Sig Max Daily Dose Days Date Category Dose Instructions Potassium Chloride 10 Meq Tab.sr.24h 10 Meq PO DAILY 04/04/19 Reported Flomax (Tamsulosin Hcl) 0.4 Mg Cap.er.24h 1 Cap PO HS 06/18/18 Rx Prednisone (Prednisone) 10 Mg Tablet 10 Mg PO UD 06/18/18 Rx 4 tab x 4d 3 tab x 4d, 2 tab x 4d and 1 tab x 4d Klor-Con 10 (Potassium Chloride) 10 Meq Tablet.er 10 Meq PO TIDAFTMEAL 06/18/18 Rx Furosemide 40 Mg Tablet 40 Mg PO DAILY 06/18/18 Rx Omeprazole 20 Mg Tablet.dr 1 Tab PO DAILY 06/16/18 Reported Polyethylene Glycol 3350 255 Gm Powder 17 Gm PO DAILY 04/06/18 Rx Senna-Time S Tablet (Sennosides/Docusate Sodium) 1 Each Tablet 1 Tab PO BID 04/06/18 Rx Fluticasone Propionate Nasal [place] (Fluticasone Propionate) 16 Gm [place].susp 2 [place] NS DAILY 04/06/18 Rx Calcium Carbonate 200 Mg Tab.chew 500 Mg PO PRN QID PRN 02/16/18 Rx Deep Sea (Sodium Chloride) 44 Ml [place] 2 [place] NS PRN Q3HRS PRN 02/16/18 Rx Spiriva (Tiotropium [place]) 18 Mcg Cap.w.dev 1 Cap IH DAILY 07/01/16 Rx Duoneb 0.5-3(2.5) Mg/3 Ml (Albuterol/Ipratropium) 3 Ml Ampul.neb 3 Ml NEB RTQID 07/01/16 Rx Carvedilol (Carvedilol) 6.25 Mg Tablet 6.25 Mg PO BIDWMEALS 07/01/16 Rx Children's Aspirin (Aspirin) 81 Mg Tab.chew 81 Mg PO DAILYWBKFT 07/01/16 Rx Symbicort 160-4.5 Mcg Inhaler (Budesonide/Formoterol Fumarate) 10.2 Gm Hfa.aer.ad 2 Puff IH BID 07/01/16 Rx Impression . 1. Acute on chronic hypoxemic hypercapnic respiratory failure. 2. Acute exacerbation of chronic obstructive pulmonary disease. 3. Underlying severe emphysema with ?interstitial lung disease. 4. New left upper lobe parenchymal opacity.? inflammatory vs neoplastic The nodule was not present on the CT scan of 02/14/2018. 5. Tobacco dependence. 6. Chronic heart failure. 7. Hypertension. 8. Type 2 diabetes. 9. Secondary pulmonary hypertension, pulmonary artery pressure measured at 76. 10. Acute on chronic cor pulmonale. Plan . 1. Recommend treatment with steroids and antibiotics. 2. Nebulized treatments. 3. Continue home medications. 4. Diurese. 5. I reviewed the current findings of left upper lobe opacity with the patient. I went over the possibility of fine needle aspiration, which would certainly high risk for a pneumothorax, versus PET scanning as an outpatient.Pt agree with PET scan. will follow with DR Garcia as OP after PET scan ALYSHA PIMENTEL MD April 06, 2019 08:30
[2019-04-06] MEDS ORDERED: AZITHRMYCN 500MG IVPB FOR OMNI 250 ML IV SCH (09:00)
[2019-04-06 09:07] LABS: % BANDS 1 % (0-9); % LYMPHS 8 % (24-48); % SEGS 91 % (35-66)
[2019-04-06 09:08] LABS: PLT ESTIMATE ADEQUATE (ADEQUATE)
--- NOTE | 2019-04-06 10:00 | PDOC ---
IM PROGRESS NOTES- Subjective Subjective Dyspnea and cough are improving. Sinuses are still stuffed up per patient. Objective Vitals Vital Signs Date Time Temp Pulse Resp B/P (MAP) Pulse Ox O2 Delivery O2 Flow Rate FiO2 04/06/19 08:22 77 150/80 04/06/19 08:01 95 Nasal Cannula 5.0 04/06/19 07:15 97.6 16 97.6 Input & Output Intake and Output 04/06/19 06:59 Intake Total 1490 ml Output Total 1750 ml Balance -260 ml Intake Oral 1490 ml Output Urine Total 1750 ml # Voids 2 Physical Exam Physical Exam GENERAL: The patient is an elderly -[place] male who is alert, oriented and in mild to moderate respiratory distress. He appears to be chronically ill. EYES: Pupils reacting to light. Conjunctivae pale. Sclerae muddy. HENT: Unremarkable. SKIN: Warm and dry. There is no cyanosis. VITAL SIGNS: The patient is on oxygen by nasal cannula 4 liters per minute. LUNGS: Bilateral wheezing. Increased air entry. CARDIOVASCULAR: S1, S2 regular. ABDOMEN: Soft, nontender, no guarding, no rigidity. Bowel sounds present. EXTREMITIES: No edema Labs Laboratory Tests Test 04/04/19 15:36 04/04/19 15:58 04/04/19 16:11 04/05/19 00:30 Urine Collection Type Unknown Urine Color Yellow Urine Clarity Clear Urine pH 8.5 Urine Specific [place] >=1.030 Urine Protein Negative mg/dL (NEG-TRACE) Urine Glucose (UA) Negative mg/dL (NEG) Urine Ketones (Stick) Negative mg/dL (NEG) Urine Blood Negative (NEG) Urine Nitrite Negative (NEG) Urine Bilirubin Negative (NEG) Urine Urobilinogen Dipstick 1.0 mg/dL (0.2 mg/dL) Urine Leukocyte Esterase Negative (NEG) Urine RBC Occ /HPF (0-2) Urine WBC 1-4 /HPF (0-4) Urine Squamous Epithelial Cells Few /LPF Urine Bacteria 0 /HPF (0-FEW) Urine Mucus Slight /LPF White Blood Count 5.8 x10^3/uL (4.0-11.0) Red Blood Count 4.22 x10^6/uL (4.30-5.70) Hemoglobin 11.2 g/dL (13.0-17.5) Hematocrit 34.5 % (39.0-53.0) Mean Corpuscular Volume 82 fL (79-100) Mean Corpuscular Hemoglobin 27 pg (25-35) Mean Corpuscular Hemoglobin Concent 32 g/dL (31-37) Red Cell Distribution Width 15.4 % (11.5-14.5) Platelet Count 128 x10^3/uL (140-400) Neutrophils (%) (Auto) 62 % (31-73) Lymphocytes (%) (Auto) 20 % (24-48) Monocytes (%) (Auto) 13 % (0-9) Eosinophils (%) (Auto) 3 % (0-3) Basophils (%) (Auto) 1 % (0-3) Neutrophils # (Auto) 3.6 x10^3uL (1.8-7.7) Lymphocytes # (Auto) 1.2 x10^3/uL (1.0-4.8) Monocytes # (Auto) 0.8 x10^3/uL (0.0-1.1) Eosinophils # (Auto) 0.2 x10^3/uL (0.0-0.7) Basophils # (Auto) 0.0 x10^3/uL (0.0-0.2) Sodium Level 142 mmol/L (136-145) Potassium Level 4.3 mmol/L (3.5-5.1) Chloride Level 102 mmol/L (98-107) Carbon Dioxide Level 33 mmol/L (21-32) Anion Gap 7 (6-14) Blood Urea Nitrogen 18 mg/dL (8-26) Creatinine 1.1 mg/dL (0.7-1.3) Estimated GFR (Cockcroft-Gault) 66.6 BUN/Creatinine Ratio 16 (6-20) Glucose Level 108 mg/dL (70-99) Lactic Acid Level 0.7 mmol/L (0.4-2.0) Calcium Level 8.7 mg/dL (8.5-10.1) Total Bilirubin 0.4 mg/dL (0.2-1.0) Aspartate Amino Transf (AST/SGOT) 14 U/L (15-37) Alanine Aminotransferase (ALT/SGPT) 13 U/L (16-63) Alkaline Phosphatase 101 U/L (46-116) Troponin I Quantitative < 0.017 ng/mL (0.000-0.055) < 0.017 ng/mL (0.000-0.055) YO-Nca-V-Type Natriuretic Peptide 140 pg/mL (0-124) Total Protein 7.0 g/dL (6.4-8.2) Albumin 3.2 g/dL (3.4-5.0) Albumin/Globulin Ratio 0.8 (1.0-1.7) O2 Saturation 96 % (92-99) Arterial Blood pH 7.34 (7.35-7.45) Arterial Blood pCO2 at Patient Temp 62 mmHg (35-46) Arterial Blood pO2 at Patient Temp 92 mmHg (65-108) Arterial Blood HCO3 33 mmol/L (21-28) Arterial Blood Base Excess 6 mmol/L (-3-3) Oxyhemoglobin 94.9 % Methemoglobin 0.2 % (0.0-1.9) Carbon Monoxide, Quantitative 0.4 % (0.0-1.9) FiO2 50% Test 04/05/19 06:00 04/05/19 12:05 04/06/19 06:53 Troponin I Quantitative < 0.017 ng/mL (0.000-0.055) < 0.017 ng/mL (0.000-0.055) Triglycerides Level 43 mg/dL (0-150) Cholesterol Level 199 mg/dL (0-200) LDL Cholesterol, Calculated 107 mg/dL (0-100) VLDL Cholesterol, Calculated 9 mg/dL (0-40) Non-HDL Cholesterol Calculated 116 mg/dL (0-129) HDL Cholesterol 83 mg/dL (40-60) Cholesterol/HDL Ratio 2.4 White Blood Count 6.9 x10^3/uL (4.0-11.0) Red Blood Count 4.32 x10^6/uL (4.30-5.70) Hemoglobin 11.7 g/dL (13.0-17.5) Hematocrit 34.6 % (39.0-53.0) Mean Corpuscular Volume 80 fL (79-100) Mean Corpuscular Hemoglobin 27 pg (25-35) Mean Corpuscular Hemoglobin Concent 34 g/dL (31-37) Red Cell Distribution Width 14.9 % (11.5-14.5) Platelet Count 130 x10^3/uL (140-400) Neutrophils (%) (Auto) 86 % (31-73) Lymphocytes (%) (Auto) 10 % (24-48) Monocytes (%) (Auto) 5 % (0-9) Eosinophils (%) (Auto) 0 % (0-3) Basophils (%) (Auto) 0 % (0-3) Neutrophils # (Auto) 5.9 x10^3uL (1.8-7.7) Lymphocytes # (Auto) 0.7 x10^3/uL (1.0-4.8) Monocytes # (Auto) 0.3 x10^3/uL (0.0-1.1) Eosinophils # (Auto) 0.0 x10^3/uL (0.0-0.7) Basophils # (Auto) 0.0 x10^3/uL (0.0-0.2) Segmented Neutrophils % 91 % (35-66) Band Neutrophils % 1 % (0-9) Lymphocytes % 8 % (24-48) Platelet Estimate Adequate (ADEQUATE) Sodium Level 138 mmol/L (136-145) Potassium Level 4.0 mmol/L (3.5-5.1) Chloride Level 99 mmol/L (98-107) Carbon Dioxide Level 31 mmol/L (21-32) Anion Gap 8 (6-14) Blood Urea Nitrogen 20 mg/dL (8-26) Creatinine 1.1 mg/dL (0.7-1.3) Estimated GFR (Cockcroft-Gault) 66.6 Glucose Level 132 mg/dL (70-99) Calcium Level 9.6 mg/dL (8.5-10.1) Laboratory Tests Test 04/05/19 12:05 04/06/19 06:53 Troponin I Quantitative < 0.017 ng/mL (0.000-0.055) White Blood Count 6.9 x10^3/uL (4.0-11.0) Red Blood Count 4.32 x10^6/uL (4.30-5.70) Hemoglobin 11.7 g/dL (13.0-17.5) Hematocrit 34.6 % (39.0-53.0) Mean Corpuscular Volume 80 fL (79-100) Mean Corpuscular Hemoglobin 27 pg (25-35) Mean Corpuscular Hemoglobin Concent 34 g/dL (31-37) Red Cell Distribution Width 14.9 % (11.5-14.5) Platelet Count 130 x10^3/uL (140-400) Neutrophils (%) (Auto) 86 % (31-73) Lymphocytes (%) (Auto) 10 % (24-48) Monocytes (%) (Auto) 5 % (0-9) Eosinophils (%) (Auto) 0 % (0-3) Basophils (%) (Auto) 0 % (0-3) Neutrophils # (Auto) 5.9 x10^3uL (1.8-7.7) Lymphocytes # (Auto) 0.7 x10^3/uL (1.0-4.8) Monocytes # (Auto) 0.3 x10^3/uL (0.0-1.1) Eosinophils # (Auto) 0.0 x10^3/uL (0.0-0.7) Basophils # (Auto) 0.0 x10^3/uL (0.0-0.2) Segmented Neutrophils % 91 % (35-66) Band Neutrophils % 1 % (0-9) Lymphocytes % 8 % (24-48) Platelet Estimate Adequate (ADEQUATE) Sodium Level 138 mmol/L (136-145) Potassium Level 4.0 mmol/L (3.5-5.1) Chloride Level 99 mmol/L (98-107) Carbon Dioxide Level 31 mmol/L (21-32) Anion Gap 8 (6-14) Blood Urea Nitrogen 20 mg/dL (8-26) Creatinine 1.1 mg/dL (0.7-1.3) Estimated GFR (Cockcroft-Gault) 66.6 Glucose Level 132 mg/dL (70-99) Calcium Level 9.6 mg/dL (8.5-10.1) Meds Current Medications Albuterol/ Ipratropium (Duoneb) 3 ml RTQID NEB ; Start 04/05/19 at 12:00; Stop 04/05/19 at 12:00; Status DC Azithromycin 250 ml @ 250 mls/hr DAILY IV ; Start 04/06/19 at 09:00; Status UNV Azithromycin 500 mg/Sodium Chloride 250 ml @ 250 mls/hr Q24H IV Last administered on 04/05/19at 10:54; Start 5/13/19 at 10:00 Budesonide (Pulmicort) 0.5 mg RTBID NEB Last administered on 04/06/19at 08:01; Start 04/05/19 at 20:00 Insulin Human Lispro (HumaLOG) 0-8 UNITS BIDBFRMEAL SQ ; Start 04/06/19 at 16:30 Lactobacillus Rhamnosus (Culturelle) 1 cap BID PO ; Start 04/05/19 at 12:00; Status Cancel Pantoprazole Sodium (Protonix) 40 mg DAILYAC PO Last administered on 04/06/19at 07:48; Start 04/06/19 at 07:30 Tamsulosin HCl (Flomax) 0.4 mg HS PO Last administered on 04/05/19at 21:47; Start 04/05/19 at 21:00 Assessment Assessment 1. Pneumonia. 2. Exacerbation of chronic obstructive pulmonary disease. 3. Possible mass in the left upper lung. 4. Acute on chronic hypoxic and hypercapnic respiratory failure. 5. Right heart failure. 6. Abnormal EKG. 7. Hypertension. 8. Diabetes mellitus type 2, diet controlled. 9. Emphysema, centrilobular 10. Hypertension with chronic kidney disease 2. 11. Physical deconditioning. PLAN: Consult Dr. Perez for cardiology evaluation and management. Consult Dr. Garcia for pulmonary evaluation and management. Start IV steroids, IV Rocephin and Zithromax. For details, please refer to the orders. Left upper lobe mass inflammatory versus neoplastic. New compared to CT scan on January 2018. Dr. Ovalles offered him fine needle biopsy but he wants to go ahead with a PET scan as outpatient and not to biopsy. Exacerbation of COPD- improving. Continue steroids. Pneumonia- continue IV Rocephin and Zithromax. Hyperglycemia due to steroids. Check blood sugars and add the low-dose insulin Plan Plan For more details regarding further plans, please refer to the orders. LEXX SHOEMAKER MD April 06, 2019 10:00
[2019-04-06] MEDS: AZITHROMYCIN 500 MG in IV NORMAL SALINE 250ML 250 ML IV SCH (10:06)
[2019-04-06 11:04] VITALS: BP 114/73
[2019-04-06 15:04] VITALS: BP 129/71
[2019-04-06] MEDS: INSULIN LISPRO 300 UNITS/3 ML INSULN.PEN. SQ SCH (16:30)
[2019-04-06 19:35] VITALS: BP 129/85
[2019-04-06] MEDS: TAMSULOSIN 0.4 MG CAP.ER.24H. PO SCH (20:50)
[2019-04-06] MEDS: cefTRIAXone IV Push 1 GM VIAL. IVP SCH (20:51)
[2019-04-06 23:33] VITALS: BP 139/84
[2019-04-07 03:44] VITALS: BP 129/81
[2019-04-07] MEDS: methylPREDNISolone SOD SUCC PF 125 MG/2 ML VIAL. IV SCH ×3 (05:32→17:40)
[2019-04-07 07:15] VITALS: BP 139/73
[2019-04-07] MEDS: INSULIN LISPRO 300 UNITS/3 ML INSULN.PEN. SQ SCH ×2 (07:30→16:30)
[2019-04-07] MEDS: BUDESONIDE 0.5 MG/2 ML NEBU. NEB SCH ×2 (08:00→20:35)
[2019-04-07] MEDS: POLYETHYLENE GLYCOL 3350 17 GM PACKET. PO SCH (09:00)
[2019-04-07] MEDS: FUROSEMIDE 40 MG TABLET. PO SCH (09:00)
[2019-04-07] MEDS: IPRATRPIUM/ALBUTEROL 0.5/2.5MG 3 ML NEBU. NEB SCH ×4 (09:25→20:35)
[2019-04-07] MEDS: FLUTICASONE 50MCG/NASAL SPRAY 16GM BOTTLE. NS SCH (09:40)
[2019-04-07] MEDS: ASPIRIN CHEWABLE 81 MG TABLET. PO SCH (09:40)
[2019-04-07] MEDS: PANTOPRAZOLE 40 MG TABLET.DR. PO SCH (09:41)
[2019-04-07] MEDS: CARVEDILOL 6.25 MG TABLET. PO SCH ×2 (09:41→17:40)
[2019-04-07] MEDS: SENNOSIDES/DOCUSATE 8.6/50MG TABLET. PO SCH ×2 (09:41→21:00)
[2019-04-07] MEDS: AZITHROMYCIN 500 MG in IV NORMAL SALINE 250ML 250 ML IV SCH (09:42)
[2019-04-07] MEDS: POTASSIUM CHLORIDE 10 MEQ TABLET.ER. PO SCH (09:42)
--- NOTE | 2019-04-07 10:06 | PDOC ---
IM PROGRESS NOTES- Subjective Subjective Dyspnea and cough are improving. Objective Vitals Vital Signs Date Time Temp Pulse Resp B/P (MAP) Pulse Ox O2 Delivery O2 Flow Rate FiO2 04/07/19 09:41 57 139/73 04/07/19 09:26 Nasal Cannula 5.0 04/07/19 07:15 97.3 18 94 97.3 Input & Output Intake and Output 04/07/19 07:00 Intake Total 1120 ml Output Total 1800 ml Balance -680 ml Intake Oral 1120 ml Output Urine Total 1800 ml Physical Exam Physical Exam GENERAL: The patient is an elderly -[place] male who is alert, oriented and in mild to moderate respiratory distress. He appears to be chronically ill. EYES: Pupils reacting to light. Conjunctivae pale. Sclerae muddy. HENT: Unremarkable. SKIN: Warm and dry. There is no cyanosis. VITAL SIGNS: The patient is on oxygen by nasal cannula 4 liters per minute. LUNGS: Bilateral wheezing. Increased air entry. CARDIOVASCULAR: S1, S2 regular. ABDOMEN: Soft, nontender, no guarding, no rigidity. Bowel sounds present. EXTREMITIES: No edema Labs Laboratory Tests Test 04/05/19 12:05 04/06/19 06:53 04/06/19 11:21 04/06/19 16:56 Troponin I Quantitative < 0.017 ng/mL (0.000-0.055) White Blood Count 6.9 x10^3/uL (4.0-11.0) Red Blood Count 4.32 x10^6/uL (4.30-5.70) Hemoglobin 11.7 g/dL (13.0-17.5) Hematocrit 34.6 % (39.0-53.0) Mean Corpuscular Volume 80 fL (79-100) Mean Corpuscular Hemoglobin 27 pg (25-35) Mean Corpuscular Hemoglobin Concent 34 g/dL (31-37) Red Cell Distribution Width 14.9 % (11.5-14.5) Platelet Count 130 x10^3/uL (140-400) Neutrophils (%) (Auto) 86 % (31-73) Lymphocytes (%) (Auto) 10 % (24-48) Monocytes (%) (Auto) 5 % (0-9) Eosinophils (%) (Auto) 0 % (0-3) Basophils (%) (Auto) 0 % (0-3) Neutrophils # (Auto) 5.9 x10^3uL (1.8-7.7) Lymphocytes # (Auto) 0.7 x10^3/uL (1.0-4.8) Monocytes # (Auto) 0.3 x10^3/uL (0.0-1.1) Eosinophils # (Auto) 0.0 x10^3/uL (0.0-0.7) Basophils # (Auto) 0.0 x10^3/uL (0.0-0.2) Segmented Neutrophils % 91 % (35-66) Band Neutrophils % 1 % (0-9) Lymphocytes % 8 % (24-48) Platelet Estimate Adequate (ADEQUATE) Sodium Level 138 mmol/L (136-145) Potassium Level 4.0 mmol/L (3.5-5.1) Chloride Level 99 mmol/L (98-107) Carbon Dioxide Level 31 mmol/L (21-32) Anion Gap 8 (6-14) Blood Urea Nitrogen 20 mg/dL (8-26) Creatinine 1.1 mg/dL (0.7-1.3) Estimated GFR (Cockcroft-Gault) 66.6 Glucose Level 132 mg/dL (70-99) Calcium Level 9.6 mg/dL (8.5-10.1) Glucose (Fingerstick) 149 mg/dL (70-99) 136 mg/dL (70-99) Test 04/06/19 20:44 04/07/19 07:27 Glucose (Fingerstick) 125 mg/dL (70-99) 122 mg/dL (70-99) Laboratory Tests Test 04/06/19 11:21 04/06/19 16:56 04/06/19 20:44 04/07/19 07:27 Glucose (Fingerstick) 149 mg/dL (70-99) 136 mg/dL (70-99) 125 mg/dL (70-99) 122 mg/dL (70-99) Meds Current Medications Insulin Human Lispro (HumaLOG) 0-8 UNITS BIDBFRMEAL SQ ; Start 04/06/19 at 16:30 Methylprednisolone Sodium Succinate (SOLU-Medrol 125MG VIAL) 60 mg BID94 IV ; Start 04/07/19 at 10:00 Assessment Assessment 1. Pneumonia. 2. Exacerbation of chronic obstructive pulmonary disease. 3. Possible mass in the left upper lung. 4. Acute on chronic hypoxic and hypercapnic respiratory failure. 5. Right heart failure. 6. Abnormal EKG. 7. Hypertension. 8. Diabetes mellitus type 2, diet controlled. 9. Emphysema, centrilobular 10. Hypertension with chronic kidney disease 2. 11. Physical deconditioning. PLAN: Consult Dr. Perez for cardiology evaluation and management. Consult Dr. Garcia for pulmonary evaluation and management. Start IV steroids, IV Rocephin and Zithromax. For details, please refer to the orders. Left upper lobe mass inflammatory versus neoplastic. New compared to CT scan on January 2018. Dr. Ovalles offered him fine needle biopsy but he wants to go ahead with a PET scan as outpatient and not to biopsy. Exacerbation of COPD- improving. Decrease Solu-Medrol to 60 mg IV twice daily. Pneumonia- continue IV Rocephin and Zithromax. Hyperglycemia due to steroids. Check blood sugars and add low-dose insulin If patient continues to improve consider discharge tomorrow. Plan Plan For more details regarding further plans, please refer to the orders. LEXX SHOEMAKER MD April 07, 2019 10:06
--- NOTE | 2019-04-07 10:53 | PDOC ---
PULMONARY PROGRESS NOTES Subjective less soa Vitals Vital Signs Date Time Temp Pulse Resp B/P (MAP) Pulse Ox O2 Delivery O2 Flow Rate FiO2 04/07/19 09:41 57 139/73 04/07/19 09:26 Nasal Cannula 5.0 04/07/19 07:15 97.3 18 94 97.3 General: Alert, No acute distress Lungs: Other Cardiovascular: S1 Abdomen: Soft, Non-tender Neuro Exam: Alert Extremities: No Edema Skin: Warm Labs Laboratory Tests Test 04/05/19 12:05 04/06/19 06:53 04/06/19 11:21 04/06/19 16:56 Troponin I Quantitative < 0.017 ng/mL (0.000-0.055) White Blood Count 6.9 x10^3/uL (4.0-11.0) Red Blood Count 4.32 x10^6/uL (4.30-5.70) Hemoglobin 11.7 g/dL (13.0-17.5) Hematocrit 34.6 % (39.0-53.0) Mean Corpuscular Volume 80 fL (79-100) Mean Corpuscular Hemoglobin 27 pg (25-35) Mean Corpuscular Hemoglobin Concent 34 g/dL (31-37) Red Cell Distribution Width 14.9 % (11.5-14.5) Platelet Count 130 x10^3/uL (140-400) Neutrophils (%) (Auto) 86 % (31-73) Lymphocytes (%) (Auto) 10 % (24-48) Monocytes (%) (Auto) 5 % (0-9) Eosinophils (%) (Auto) 0 % (0-3) Basophils (%) (Auto) 0 % (0-3) Neutrophils # (Auto) 5.9 x10^3uL (1.8-7.7) Lymphocytes # (Auto) 0.7 x10^3/uL (1.0-4.8) Monocytes # (Auto) 0.3 x10^3/uL (0.0-1.1) Eosinophils # (Auto) 0.0 x10^3/uL (0.0-0.7) Basophils # (Auto) 0.0 x10^3/uL (0.0-0.2) Segmented Neutrophils % 91 % (35-66) Band Neutrophils % 1 % (0-9) Lymphocytes % 8 % (24-48) Platelet Estimate Adequate (ADEQUATE) Sodium Level 138 mmol/L (136-145) Potassium Level 4.0 mmol/L (3.5-5.1) Chloride Level 99 mmol/L (98-107) Carbon Dioxide Level 31 mmol/L (21-32) Anion Gap 8 (6-14) Blood Urea Nitrogen 20 mg/dL (8-26) Creatinine 1.1 mg/dL (0.7-1.3) Estimated GFR (Cockcroft-Gault) 66.6 Glucose Level 132 mg/dL (70-99) Calcium Level 9.6 mg/dL (8.5-10.1) Glucose (Fingerstick) 149 mg/dL (70-99) 136 mg/dL (70-99) Test 04/06/19 20:44 04/07/19 07:27 Glucose (Fingerstick) 125 mg/dL (70-99) 122 mg/dL (70-99) Laboratory Tests Test 04/06/19 11:21 04/06/19 16:56 04/06/19 20:44 04/07/19 07:27 Glucose (Fingerstick) 149 mg/dL (70-99) 136 mg/dL (70-99) 125 mg/dL (70-99) 122 mg/dL (70-99) Medications Active Scripts Medications Dose Route/Sig Max Daily Dose Days Date Category Dose Instructions Potassium Chloride 10 Meq Tab.sr.24h 10 Meq PO DAILY 04/04/19 Reported Flomax (Tamsulosin Hcl) 0.4 Mg Cap.er.24h 1 Cap PO HS 06/18/18 Rx Prednisone (Prednisone) 10 Mg Tablet 10 Mg PO UD 06/18/18 Rx 4 tab x 4d 3 tab x 4d, 2 tab x 4d and 1 tab x 4d Klor-Con 10 (Potassium Chloride) 10 Meq Tablet.er 10 Meq PO TIDAFTMEAL 06/18/18 Rx Furosemide 40 Mg Tablet 40 Mg PO DAILY 06/18/18 Rx Omeprazole 20 Mg Tablet.dr 1 Tab PO DAILY 06/16/18 Reported Polyethylene Glycol 3350 255 Gm Powder 17 Gm PO DAILY 04/06/18 Rx Senna-Time S Tablet (Sennosides/Docusate Sodium) 1 Each Tablet 1 Tab PO BID 04/06/18 Rx Fluticasone Propionate Nasal [place] (Fluticasone Propionate) 16 Gm [place].susp 2 [place] NS DAILY 04/06/18 Rx Calcium Carbonate 200 Mg Tab.chew 500 Mg PO PRN QID PRN 02/16/18 Rx Deep Sea (Sodium Chloride) 44 Ml [place] 2 [place] NS PRN Q3HRS PRN 02/16/18 Rx Spiriva (Tiotropium [place]) 18 Mcg Cap.w.dev 1 Cap IH DAILY 07/01/16 Rx Duoneb 0.5-3(2.5) Mg/3 Ml (Albuterol/Ipratropium) 3 Ml Ampul.neb 3 Ml NEB RTQID 07/01/16 Rx Carvedilol (Carvedilol) 6.25 Mg Tablet 6.25 Mg PO BIDWMEALS 07/01/16 Rx Children's Aspirin (Aspirin) 81 Mg Tab.chew 81 Mg PO DAILYWBKFT 07/01/16 Rx Symbicort 160-4.5 Mcg Inhaler (Budesonide/Formoterol Fumarate) 10.2 Gm Hfa.aer.ad 2 Puff IH BID 07/01/16 Rx Impression . 1. Acute on chronic hypoxemic hypercapnic respiratory failure. 2. Acute exacerbation of chronic obstructive pulmonary disease. 3. Underlying severe emphysema with ?interstitial lung disease. 4. New left upper lobe parenchymal opacity.? inflammatory vs neoplastic The nodule was not present on the CT scan of 02/14/2018. 5. Tobacco dependence. 6. Chronic heart failure. 7. Hypertension. 8. Type 2 diabetes. 9. Secondary pulmonary hypertension, pulmonary artery pressure measured at 76. 10. Acute on chronic cor pulmonale. Plan . 1. Recommend treatment with steroids and antibiotics. 2. Nebulized treatments. 3. Continue home medications. 4. Diurese. 5. I reviewed the current findings of left upper lobe opacity with the patient. I went over the possibility of fine needle aspiration, which would certainly high risk for a pneumothorax, versus PET scanning as an outpatient.Pt agree with PET scan. will follow with DR Garcia as OP after PET scan. appointment given with DR Garcia for May 19 ALYSHA PIMENTEL MD April 07, 2019 10:53
[2019-04-07 11:10] VITALS: BP 107/66
[2019-04-07 15:18] VITALS: BP 134/80
[2019-04-07 19:00] VITALS: BP 133/75
[2019-04-07] MEDS: cefTRIAXone IV Push 1 GM VIAL. IVP SCH (21:02)
[2019-04-07] MEDS: TAMSULOSIN 0.4 MG CAP.ER.24H. PO SCH (21:02)
[2019-04-07 23:06] VITALS: BP 152/86
[2019-04-08 03:12] VITALS: BP 126/78
[2019-04-08 04:34] LABS: CALCIUM 9.3 mg/dL (8.5-10.1); GFR 74.3
[2019-04-08 07:00] VITALS: BP 122/96
[2019-04-08] MEDS: INSULIN LISPRO 300 UNITS/3 ML INSULN.PEN. SQ SCH (07:30)
[2019-04-08] MEDS: POLYETHYLENE GLYCOL 3350 17 GM PACKET. PO SCH (08:57)
[2019-04-08] MEDS: FLUTICASONE 50MCG/NASAL SPRAY 16GM BOTTLE. NS SCH (08:58)
[2019-04-08] MEDS: POTASSIUM CHLORIDE 10 MEQ TABLET.ER. PO SCH (08:58)
[2019-04-08] MEDS: PANTOPRAZOLE 40 MG TABLET.DR. PO SCH (08:58)
[2019-04-08] MEDS: ASPIRIN CHEWABLE 81 MG TABLET. PO SCH (08:59)
[2019-04-08] MEDS: FUROSEMIDE 40 MG TABLET. PO SCH ×2 (08:59→09:00)
[2019-04-08] MEDS: CARVEDILOL 6.25 MG TABLET. PO SCH (08:59)
[2019-04-08] MEDS: SENNOSIDES/DOCUSATE 8.6/50MG TABLET. PO SCH (08:59)
[2019-04-08] MEDS: BUDESONIDE 0.5 MG/2 ML NEBU. NEB SCH (09:05)
[2019-04-08] MEDS: IPRATRPIUM/ALBUTEROL 0.5/2.5MG 3 ML NEBU. NEB SCH ×2 (09:05→12:00)
[2019-04-08] MEDS ORDERED: ALBU2.5V8 NEB (09:29)
[2019-04-08] MEDS ORDERED: CEFP200T PO (09:29)
--- NOTE | 2019-04-08 09:31 | DISCH ---
DISCHARGE INSTRUCTIONS Condition on Discharge Condition on Discharge: Stable Activity After Discharge Activity Instructions for Disc: Activity as tolerated, Avoid exertion Exercise Instruction after Dis: Progress as tolerated Weight Bearing Status after Di: As tolerated Diet after Discharge Diet after Discharge: Cardiac Diet Texture: Regular Swallowing Supervision: None needed Checks after Discharge Checks after discharge: Check blood sugar, ac/hs Contacting the DRSari after DC Call your doctor for: Concerns you may have Follow-Up Follow up with: Dr.Pratip Shoemaker in 5 days Treatment/Equipment after DC Discharge Respiratory Equipmen: Oxygen (4-5 lit/min), Nebulizer LEXX SHOEMAKER MD April 08, 2019 09:31
--- NOTE | 2019-04-08 10:01 | PDOC3 ---
IM DISCHARGE SUMMARY Date of Admission Date of Admission Date of Admission: April 04, 2019 at 18:04 Date of Discharge Date of Discharge 04/08/19 Primary Diagnosis Primary Diagnosis 1. Pneumonia. 2. Exacerbation of chronic obstructive pulmonary disease. 3. Mass in the left upper lung. 4. Acute on chronic hypoxic and hypercapnic respiratory failure. 5. Right heart failure. 6. Abnormal EKG. 7. Hypertension. 8. Diabetes mellitus type 2, diet controlled. 9. Emphysema, centrilobular 10. Hypertension with chronic kidney disease 2. 11. Physical deconditioning. Consults Consults Jens Perez MD Labs Labs Laboratory Tests Test 04/05/19 12:05 04/06/19 06:53 04/06/19 11:21 04/06/19 16:56 Troponin I Quantitative < 0.017 ng/mL (0.000-0.055) White Blood Count 6.9 x10^3/uL (4.0-11.0) Red Blood Count 4.32 x10^6/uL (4.30-5.70) Hemoglobin 11.7 g/dL (13.0-17.5) Hematocrit 34.6 % (39.0-53.0) Mean Corpuscular Volume 80 fL (79-100) Mean Corpuscular Hemoglobin 27 pg (25-35) Mean Corpuscular Hemoglobin Concent 34 g/dL (31-37) Red Cell Distribution Width 14.9 % (11.5-14.5) Platelet Count 130 x10^3/uL (140-400) Neutrophils (%) (Auto) 86 % (31-73) Lymphocytes (%) (Auto) 10 % (24-48) Monocytes (%) (Auto) 5 % (0-9) Eosinophils (%) (Auto) 0 % (0-3) Basophils (%) (Auto) 0 % (0-3) Neutrophils # (Auto) 5.9 x10^3uL (1.8-7.7) Lymphocytes # (Auto) 0.7 x10^3/uL (1.0-4.8) Monocytes # (Auto) 0.3 x10^3/uL (0.0-1.1) Eosinophils # (Auto) 0.0 x10^3/uL (0.0-0.7) Basophils # (Auto) 0.0 x10^3/uL (0.0-0.2) Segmented Neutrophils % 91 % (35-66) Band Neutrophils % 1 % (0-9) Lymphocytes % 8 % (24-48) Platelet Estimate Adequate (ADEQUATE) Sodium Level 138 mmol/L (136-145) Potassium Level 4.0 mmol/L (3.5-5.1) Chloride Level 99 mmol/L (98-107) Carbon Dioxide Level 31 mmol/L (21-32) Anion Gap 8 (6-14) Blood Urea Nitrogen 20 mg/dL (8-26) Creatinine 1.1 mg/dL (0.7-1.3) Estimated GFR (Cockcroft-Gault) 66.6 Glucose Level 132 mg/dL (70-99) Calcium Level 9.6 mg/dL (8.5-10.1) Glucose (Fingerstick) 149 mg/dL (70-99) 136 mg/dL (70-99) Test 04/06/19 20:44 04/07/19 07:27 04/07/19 11:13 04/07/19 16:59 Glucose (Fingerstick) 125 mg/dL (70-99) 122 mg/dL (70-99) 155 mg/dL (70-99) 124 mg/dL (70-99) Test 04/07/19 20:06 04/08/19 04:00 Glucose (Fingerstick) 129 mg/dL (70-99) Sodium Level 140 mmol/L (136-145) Potassium Level 4.0 mmol/L (3.5-5.1) Chloride Level 101 mmol/L (98-107) Carbon Dioxide Level 31 mmol/L (21-32) Anion Gap 8 (6-14) Blood Urea Nitrogen 32 mg/dL (8-26) Creatinine 1.0 mg/dL (0.7-1.3) Estimated GFR (Cockcroft-Gault) 74.3 Glucose Level 123 mg/dL (70-99) Calcium Level 9.3 mg/dL (8.5-10.1) Brief hospital course Brief hospital course This 68-year-old -[place] male who is known to have severe COPD and respiratory failure, on oxygen by nasal cannula 4 liters per minute at home, started becoming more and more short of breath in the last 2 days. He also had more swelling in the legs. In the Emergency Room, the patient's oxygen saturation was 79-82%, and he was also noted to be much more short of breath. CT scan of chest showed no PE, but showed a possible left upper lobe mass versus inflammation and pneumonia or scarring. Because of the acute exacerbation of COPD, the patient was admitted for further evaluation and management. In the Emergency Room, EKG had shown ST elevation in 2, 3, aVF and 0.[address] depression in V1, V2, V3 per ER physician, so clinical office technician was consulted. For more details regarding the past history, family history, social history, surgical history and other details, please refer to History and Physical. Consult Dr. Perez for cardiology evaluation and management. Consult Dr. Garcia for pulmonary evaluation and management. Start IV steroids, IV Rocephin and Zithromax. For details, please refer to the orders. Left upper lobe mass inflammatory versus neoplastic. New compared to CT scan on January 2018. Dr. Ovalles offered him fine needle biopsy but he wants to go ahead with a PET scan as outpatient and not to biopsy.See as outpatient. Exacerbation of COPD- improving. Decrease Solu-Medrol to 60 mg IV twice daily.Decrease O2 to 4 lit/min. Pneumonia- continue IV Rocephin and Zithromax. Hyperglycemia due to steroids. Check blood sugars and add low-dose insulin.Check blood sugar at home. Improving.Discharge today on prednisone 40 mg,30 mg,20 mg ,10 mg each for 4 days, and Vantin 200 mg bid for 7 days. Prognosis is poor. Medications Medications reviewed and reconciled for discharge. Allergy Allergies Coded Allergies Type Severity Reaction Last Updated Verified No Known Drug Allergies 06/28/16 No Follow up in 5 days. DISPOSITION: Home Comments Discharge Management - 35 minutes. For other details please refer to discharge instructions LEXX SHOEMAKER MD April 08, 2019 10:01
[2019-04-08] MEDS: AZITHROMYCIN 500 MG in IV NORMAL SALINE 250ML 250 ML IV SCH (10:13)
[2019-04-08] MEDS: methylPREDNISolone SOD SUCC PF 125 MG/2 ML VIAL. IV SCH (10:13)
[2019-04-08 11:00] VITALS: BP 130/83
--- NOTE | 2019-04-08 12:58 | PDOC ---
PULMONARY PROGRESS NOTES Subjective less soa Vitals Vital Signs Date Time Temp Pulse Resp B/P (MAP) Pulse Ox O2 Delivery O2 Flow Rate FiO2 04/08/19 11:00 97.9 68 20 130/83 (99) 90 Nasal Cannula 5.0 97.9 General: Alert, No acute distress Lungs: Other Cardiovascular: S1 Abdomen: Soft, Non-tender Neuro Exam: Alert Extremities: No Edema Skin: Warm Labs Laboratory Tests Test 04/06/19 16:56 04/06/19 20:44 04/07/19 07:27 04/07/19 11:13 Glucose (Fingerstick) 136 mg/dL (70-99) 125 mg/dL (70-99) 122 mg/dL (70-99) 155 mg/dL (70-99) Test 04/07/19 16:59 04/07/19 20:06 04/08/19 04:00 04/08/19 11:50 Glucose (Fingerstick) 124 mg/dL (70-99) 129 mg/dL (70-99) 121 mg/dL (70-99) Sodium Level 140 mmol/L (136-145) Potassium Level 4.0 mmol/L (3.5-5.1) Chloride Level 101 mmol/L (98-107) Carbon Dioxide Level 31 mmol/L (21-32) Anion Gap 8 (6-14) Blood Urea Nitrogen 32 mg/dL (8-26) Creatinine 1.0 mg/dL (0.7-1.3) Estimated GFR (Cockcroft-Gault) 74.3 Glucose Level 123 mg/dL (70-99) Calcium Level 9.3 mg/dL (8.5-10.1) Laboratory Tests Test 04/07/19 16:59 04/07/19 20:06 04/08/19 04:00 04/08/19 11:50 Glucose (Fingerstick) 124 mg/dL (70-99) 129 mg/dL (70-99) 121 mg/dL (70-99) Sodium Level 140 mmol/L (136-145) Potassium Level 4.0 mmol/L (3.5-5.1) Chloride Level 101 mmol/L (98-107) Carbon Dioxide Level 31 mmol/L (21-32) Anion Gap 8 (6-14) Blood Urea Nitrogen 32 mg/dL (8-26) Creatinine 1.0 mg/dL (0.7-1.3) Estimated GFR (Cockcroft-Gault) 74.3 Glucose Level 123 mg/dL (70-99) Calcium Level 9.3 mg/dL (8.5-10.1) Medications Active Scripts Medications Dose Route/Sig Max Daily Dose Days Date Category Dose Instructions Potassium Chloride 10 Meq Tab.sr.24h 10 Meq PO DAILY 04/04/19 Reported Flomax (Tamsulosin Hcl) 0.4 Mg Cap.er.24h 1 Cap PO HS 06/18/18 Rx Prednisone (Prednisone) 10 Mg Tablet 10 Mg PO UD 06/18/18 Rx 4 tab x 4d 3 tab x 4d, 2 tab x 4d and 1 tab x 4d Klor-Con 10 (Potassium Chloride) 10 Meq Tablet.er 10 Meq PO TIDAFTMEAL 06/18/18 Rx Furosemide 40 Mg Tablet 40 Mg PO DAILY 06/18/18 Rx Omeprazole 20 Mg Tablet.dr 1 Tab PO DAILY 06/16/18 Reported Polyethylene Glycol 3350 255 Gm Powder 17 Gm PO DAILY 04/06/18 Rx Senna-Time S Tablet (Sennosides/Docusate Sodium) 1 Each Tablet 1 Tab PO BID 04/06/18 Rx Fluticasone Propionate Nasal [place] (Fluticasone Propionate) 16 Gm [place].susp 2 [place] NS DAILY 04/06/18 Rx Calcium Carbonate 200 Mg Tab.chew 500 Mg PO PRN QID PRN 02/16/18 Rx Deep Sea (Sodium Chloride) 44 Ml [place] 2 Susana NS PRN Q3HRS PRN 02/16/18 Rx Spiriva (Tiotropium [place]) 18 Mcg Cap.w.dev 1 Cap IH DAILY 07/01/16 Rx Duoneb 0.5-3(2.5) Mg/3 Ml (Albuterol/Ipratropium) 3 Ml Ampul.neb 3 Ml NEB RTQID 07/01/16 Rx Carvedilol (Carvedilol) 6.25 Mg Tablet 6.25 Mg PO BIDWMEALS 07/01/16 Rx Children's Aspirin (Aspirin) 81 Mg Tab.chew 81 Mg PO DAILYWBKFT 07/01/16 Rx Symbicort 160-4.5 Mcg Inhaler (Budesonide/Formoterol Fumarate) 10.2 Gm Hfa.aer.ad 2 Puff IH BID 07/01/16 Rx Impression . 1. Acute on chronic hypoxemic hypercapnic respiratory failure. 2. Acute exacerbation of chronic obstructive pulmonary disease. 3. Underlying severe emphysema with ?interstitial lung disease. 4. New left upper lobe parenchymal opacity.? inflammatory vs neoplastic The nodule was not present on the CT scan of 02/14/2018. 5. Tobacco dependence. 6. Chronic heart failure. 7. Hypertension. 8. Type 2 diabetes. 9. Secondary pulmonary hypertension, pulmonary artery pressure measured at 76. 10. Acute on chronic cor pulmonale. Plan . 1. TAPER steroids /antibiotics. 2. Nebulized treatments. 3. Continue home medications. 4. Diurese. 5. I reviewed the current findings of left upper lobe opacity with the patient. I went over the possibility of fine needle aspiration, which would certainly high risk for a pneumothorax, versus PET scanning as an outpatient.Pt agree with PET scan. will follow with DR Garcia as OP after PET scan. appointment given with DR Monisha patel for May 19 at 3 pm ALYSHA PIMENTEL MD April 08, 2019 12:58
--- NOTE | 2019-04-08 14:39 | NUR ---
Discharge Note: TONYA GALLARDO IV [address] [place] [address] Discharge instructions and discharge home medications reviewed with Patient and a copy given. All questions have been answered and understanding verbalized. The following instructions and handouts were given: Appt card and Prednisone and Cefodoxime scripts, verbalized understanding to set PET scan appointment Discontinued lines and drains: 1 x PIV tip intact Patient discharged to Home with significant other
[2019-04-08 15:00] VITALS: BP 161/94
== END 2019-04-08 16:24 | disposition home or self-care (01) | DRG 177 ==
LOC: ER 15:24 → 6 SOUTH 18:04
PROVIDERS: ADMIT Internal Medicine; ATTEND Internal Medicine
DX: J15.6 Pneumonia due to other Gram-negative bacteria (principal); I26.09 Other pulmonary embolism with acute cor pulmonale; J96.22 Acute and chronic respiratory failure with hypercapnia; J96.21 Acute and chronic respiratory failure with hypoxia; R65.11 Systemic inflammatory response syndrome (SIRS) of non-infectious origin with acute organ dysfunction; I50.32 Chronic diastolic (congestive) heart failure; I13.0 Hypertensive heart and chronic kidney disease with heart failure and stage 1 through stage 4 chronic kidney disease, or unspecified chronic kidney disease; J44.1 Chronic obstructive pulmonary disease with (acute) exacerbation; J44.0 Chronic obstructive pulmonary disease with (acute) lower respiratory infection; J18.9 Pneumonia, unspecified organism; N18.2 Chronic kidney disease, stage 2 (mild); M19.90 Unspecified osteoarthritis, unspecified site; F41.9 Anxiety disorder, unspecified; F17.210 Nicotine dependence, cigarettes, uncomplicated; E11.22 Type 2 diabetes mellitus with diabetic chronic kidney disease; K21.9 Gastro-esophageal reflux disease without esophagitis; E11.65 Type 2 diabetes mellitus with hyperglycemia; I27.29 Other secondary pulmonary hypertension; T38.0X5A Adverse effect of glucocorticoids and synthetic analogues, initial encounter; Y92.89 Other specified places as the place of occurrence of the external cause; Z99.81 Dependence on supplemental oxygen; Z82.49 Family history of ischemic heart disease and other diseases of the circulatory system; Z82.5 Family history of asthma and other chronic lower respiratory diseases
CPT/HCPCS: 36415; 36600; 71046; 71275; 80048; 80053; 80061; 81001; 82805; 82962; 83605; 83880; 84484; 85007; 85025; 87040; 87070; 87205; 93005; 93306; 94640; 94660; 94760; 96374; J0456; J0696; J1815; J2930; J7050; J7613; J7620; J7626; Q9967; 97110; 99285-25; J7030

== ENCOUNTER 2019-05-17 16:36 | Emergency (ER) | payer OTHER ==
[~2019-05-17] VITALS: Ht 182.9 cm; Wt 76.7 kg
[~2019-05-17 16:36] MED LIST changes: +ALBU2.5V8 NEB; +CEFP200T PO; +MONT10TA49 PO; -MONT10TA9 PO
[2019-05-17] MEDS: methylPREDNISolone SOD SUCC PF 125 MG/2 ML VIAL. IV ONE (17:06)
[2019-05-17 17:18] LABS: BASO % 0 % (0-3); EOS # 0.1 x10^3/uL (0.0-0.7); EOS % 2 % (0-3); HEMATOCRIT 31.7 % (39.0-53.0); HEMOGLOBIN 10.6 g/dL (13.0-17.5); LYMPH # 1.3 x10^3/uL (1.0-4.8); LYMPH % 17 % (24-48); MEAN CORPUSCULAR HEMOGLOBIN 27 pg (25-35); MEAN CORPUSCULAR HGB CONC 34 g/dL (31-37); MEAN CORPUSCULAR VOLUME 80 fL (79-100); MONO # 0.8 x10^3/uL (0.0-1.1); MONO % 10 % (0-9); NEUT # 5.4 x10^3uL (1.8-7.7); NEUT % 71 % (31-73); PLATELET COUNT 173 x10^3/uL (140-400); RED BLOOD COUNT 3.95 x10^6/uL (4.30-5.70); WHITE BLOOD COUNT 7.6 x10^3/uL (4.0-11.0)
[2019-05-17] MEDS: IPRATRPIUM/ALBUTEROL 0.5/2.5MG 3 ML NEBU. NEB ONE ×2 (17:25→17:34)
[2019-05-17 17:30] LABS: BASE EXCESS ABG 9 mmol/L (-3-3); HCO3 ABG 35 mmol/L (21-28); PCO2 ABG 58 mmHg (35-46); PO2 ABG 59 mmHg (65-108); SAT O2 ABG 89 % (92-99)
[2019-05-17 17:39] LABS: ALBUMIN 3.1 g/dL (3.4-5.0); ALBUMIN/GLOBULIN RATIO 0.7 (1.0-1.7); CALCIUM 9.3 mg/dL (8.5-10.1); CREATININE 1.1 mg/dL (0.7-1.3); GFR 66.6; POTASSIUM 3.7 mmol/L (3.5-5.1); TOTAL BILIRUBIN 0.4 mg/dL (0.2-1.0); TOTAL PROTEIN 7.5 g/dL (6.4-8.2)
[2019-05-17 17:42] LABS: FIO2 ABG 40
--- NOTE | 2019-05-17 17:50 | PHYS DOC ---
Past Medical History Past Medical History: CHF, COPD, Diabetes-Type II, High Cholesterol, Hypertension Additional Past Medical Histor: "LIVER PROBLEMS" Past Surgical History: No Surgical History Additional Information: reports smoking 2-3 cigarettes daily Alcohol Use: None Drug Use: None Adult General Chief Complaint Chief Complaint: SHORTNESS OF BREATH HPI HPI 68-year-old male with a history of altered medical medical problems including COPD and CHF presents with significant lower extremity swelling. He was seen by his primary care physician earlier today and sent here secondary to the swelling. There is concern that there may be blood clots. Patient states he wears 4 L of oxygen at home and as long as he states sitting still was not particularly short of breath however with any exertion he really struggles. He denies any fever chills or sweats. He has not had any hemoptysis. He does describe orthopnea.[] Review of Systems Review of Systems Constitutional: Denies fever or chills [] Eyes: Denies change in visual acuity, redness, or eye pain [] HENT: Denies nasal congestion or sore throat [] Respiratory: Per history of present illness[] Cardiovascular: No additional information not addressed in HPI [] GI: Denies abdominal pain, nausea, vomiting, bloody stools or diarrhea [] : Denies dysuria or hematuria [] Musculoskeletal: Significant lower extremity swelling[] Integument: Denies rash or skin lesions [] Neurologic: Denies headache, focal weakness or sensory changes [] Endocrine: Denies polyuria or polydipsia [] All other systems were reviewed and found to be within normal limits, except as documented in this note. Current Medications Current Medications Current Medications Medications (Trade) Dose Ordered Sig/Chidi Start Time Stop Time Status Last Admin Dose Admin Albuterol/ Ipratropium (Duoneb) 3 ml RTQID 05/17/19 20:00 05/17/19 20:00 DC Methylprednisolone Sodium Succinate (SOLU-Medrol 125MG VIAL) 125 mg 1X ONCE 05/17/19 17:00 05/17/19 17:01 DC 05/17/19 17:06 125 MG Allergies Allergies Allergies Coded Allergies Type Severity Reaction Last Updated Verified No Known Drug Allergies 06/28/16 No Physical Exam Physical Exam Constitutional: Well developed, well nourished, no acute distress, disheveled[] HENT: Normocephalic, atraumatic, bilateral external ears normal, oropharynx moist, no oral exudates, nose normal. [] Eyes: PERRLA, EOMI, conjunctiva normal, no discharge. [] Neck: Normal range of motion, no tenderness, supple, no stridor. [] Cardiovascular:Heart rate regular rhythm, no murmur [] Lungs & Thorax: Apical wheezing with bibasilar rales[] Abdomen: Bowel sounds normal, soft, no tenderness, no masses, no pulsatile masses. [] Skin: Warm, dry, no erythema, no rash. [] Back: No tenderness, no CVA tenderness. [] Extremities: 2+ lower extremity edema equal bilaterally. [] Neurologic: Alert and oriented X 3, normal motor function, normal sensory function, no focal deficits noted. [] Psychologic: Depressed affect[] Current Patient Data Vital Signs Vital Signs Date Time Temp Pulse Resp B/P (MAP) Pulse Ox O2 Delivery O2 Flow Rate FiO2 05/17/19 18:27 65 21 127/67 (87) 94 Nasal Cannula 5.0 05/17/19 16:40 98.3 98.3 Lab Values Laboratory Tests Test 05/17/19 17:05 05/17/19 17:25 White Blood Count 7.6 x10^3/uL (4.0-11.0) Red Blood Count 3.95 x10^6/uL (4.30-5.70) L Hemoglobin 10.6 g/dL (13.0-17.5) L Hematocrit 31.7 % (39.0-53.0) L Mean Corpuscular Volume 80 fL (79-100) Mean Corpuscular Hemoglobin 27 pg (25-35) Mean Corpuscular Hemoglobin Concent 34 g/dL (31-37) Red Cell Distribution Width 15.0 % (11.5-14.5) H Platelet Count 173 x10^3/uL (140-400) Neutrophils (%) (Auto) 71 % (31-73) Lymphocytes (%) (Auto) 17 % (24-48) L Monocytes (%) (Auto) 10 % (0-9) H Eosinophils (%) (Auto) 2 % (0-3) Basophils (%) (Auto) 0 % (0-3) Neutrophils # (Auto) 5.4 x10^3uL (1.8-7.7) Lymphocytes # (Auto) 1.3 x10^3/uL (1.0-4.8) Monocytes # (Auto) 0.8 x10^3/uL (0.0-1.1) Eosinophils # (Auto) 0.1 x10^3/uL (0.0-0.7) Basophils # (Auto) 0.0 x10^3/uL (0.0-0.2) Sodium Level 141 mmol/L (136-145) Potassium Level 3.7 mmol/L (3.5-5.1) Chloride Level 102 mmol/L (98-107) Carbon Dioxide Level 38 mmol/L (21-32) H Anion Gap 1 (6-14) L Blood Urea Nitrogen 20 mg/dL (8-26) Creatinine 1.1 mg/dL (0.7-1.3) Estimated GFR (Cockcroft-Gault) 66.6 BUN/Creatinine Ratio 18 (6-20) Glucose Level 112 mg/dL (70-99) H Calcium Level 9.3 mg/dL (8.5-10.1) Total Bilirubin 0.4 mg/dL (0.2-1.0) Aspartate Amino Transferase (AST) 15 U/L (15-37) Alanine Aminotransferase (ALT) 13 U/L (16-63) L Alkaline Phosphatase 86 U/L (46-116) Troponin I Quantitative < 0.017 ng/mL (0.000-0.055) ZO-Ghk-T-Type Natriuretic Peptide 171 pg/mL (0-124) H Total Protein 7.5 g/dL (6.4-8.2) Albumin 3.1 g/dL (3.4-5.0) L Albumin/Globulin Ratio 0.7 (1.0-1.7) L O2 Saturation 89 % (92-99) L Arterial Blood pH 7.40 (7.35-7.45) Arterial Blood pCO2 at Patient Temp 58 mmHg (35-46) H Arterial Blood pO2 at Patient Temp 59 mmHg (65-108) L Arterial Blood HCO3 35 mmol/L (21-28) H Arterial Blood Base Excess 9 mmol/L (-3-3) H FiO2 40 Laboratory Tests 05/17/19 17:05 Laboratory Tests 05/17/19 17:05 EKG EKG [] Interpretation Time: EKG: Normal sinus rhythm rate of [address]-T changes Radiology/Procedures Radiology/Procedures [] Impressions: PROCEDURE: VENOUS LOWER EXT BILATERAL Ultrasound venous Doppler INDICATION:Shortness of breath and bilateral lower extremity edema. TECHNIQUE: Grayscale, color Doppler and spectral waveform ultrasound images of the bilateral lower extremities deep veins obtained. COMPARISON: None FINDINGS: The interrogated deep veins are compressible and demonstrate evidence of blood flow with normal respiratory variation and response to augmentation. IMPRESSION: No sonographic evidence of acute DVT of the bilateral lower extremity deep veins. Course & Med Decision Making Course & Med Decision Making Pertinent Labs and Imaging studies reviewed. (See chart for details) [ED course: Evaluation reveals a 68-year-old male that appears much older than his stated age. He has significant lower extremity edema but his venous Dopplers were negative. Patient's oxygen saturation was in the mid 80s on his 4 L and had to be turned up. He did improve some after a DuoNeb and steroids. I spoke with Dr. Shoemaker who agreed that the patient likely needed admission and a tuneup.] Dragon Disclaimer Dragon Disclaimer This electronic medical record was generated, in whole or in part, using a voice recognition dictation system. Departure Departure Impression: Primary Impression: CHF exacerbation Additional Impressions: COPD exacerbation Dyspnea Peripheral edema Disposition: 09 ADMITTED INPATIENT Admitting Physician: Lexx Shoemaker Condition: GUARDED Referrals: LEXX SHOEMAKER MD (PCP) Problem Qualifiers Primary Impression: CHF exacerbation Heart failure type: right-sided Qualified Codes: I50.813 - Acute on chronic right heart failure Additional Impressions: Dyspnea Dyspnea type: dyspnea on exertion Qualified Codes: R06.09 - Other forms of dyspnea BRITTA CANDELARIO DO May 17, 2019 17:50
--- NOTE | 2019-05-17 17:55 | RAD ---
Ultrasound venous Doppler INDICATION:Shortness of breath and bilateral lower extremity edema. TECHNIQUE: Grayscale, color Doppler and spectral waveform ultrasound images of the bilateral lower extremities deep veins obtained. COMPARISON: None FINDINGS: The interrogated deep veins are compressible and demonstrate evidence of blood flow with normal respiratory variation and response to augmentation. IMPRESSION: No sonographic evidence of acute DVT of the bilateral lower extremity deep veins. Electronically signed by: Shaun Ross DO (05/17/2019 5:52 PM) [facility]
[2019-05-17 18:27] VITALS: BP 127/67
--- NOTE | 2019-05-17 19:42 | EKG ---
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
--- NOTE | 2019-05-17 19:59 | RAD ---
AP chest x-ray HISTORY: Shortness of breath. COMPARISON: Chest x-ray April 04, 2019. FINDINGS: Heart size stable. Large pulmonary artery silhouette stable. Changes of pulmonary emphysema and coarsened interstitial markings likely from chronic interstitial disease, stable. The scarlike lesion of the left upper lobe on prior CT imaging is poorly evident on this x-ray. No new pulmonary opacity. No pneumothorax or pleural effusions. Bones are unremarkable. IMPRESSION: No acute process. Stable exam. Electronically signed by: Robert Oviedo MD (05/17/2019 7:56 PM) [facility]
[2019-05-17] MEDS ORDERED: IPRATRPIUM/ALBUTEROL 0.5/2.5MG 3 ML NEBU. NEB SCH (20:00)
[2019-05-19] MEDS ORDERED: METH4TAB2 PO (10:10)
[2019-05-19] MEDS ORDERED: FURO-68 PO (10:10)
== END 2019-05-17 18:50 | disposition left against medical advice (07) ==
LOC: ER 16:36
DX: R60.0 Localized edema (principal); J44.1 Chronic obstructive pulmonary disease with (acute) exacerbation; I11.0 Hypertensive heart disease with heart failure; I50.813 Acute on chronic right heart failure; E78.00 Pure hypercholesterolemia, unspecified; E11.9 Type 2 diabetes mellitus without complications; F17.210 Nicotine dependence, cigarettes, uncomplicated
CPT/HCPCS: 36415; 36600; 71045; 80053; 82805; 83880; 84484; 85025; 93005; 93970; 94640; 96374; 99285; J2930; J7620